=== PATIENT | female | born 1970 | race Caucasian/White ===

== ENCOUNTER 2017-07-17 09:28 | Emergency (ER) | payer MEDICARE ==
[2017-07-17] MEDS ORDERED: Compazine 10 MG/2 ML IV ONE (09:52)
[2017-07-17] MEDS ORDERED: Sodium Chloride 0.9% 1000 ML 1,000 ML IV STA (09:52)
[2017-07-17] MEDS ORDERED: BENADRYL 50 MG/ML IV ONE (09:52)
--- NOTE | 2017-07-17 10:00 | ERPHSYRPT ---
- History of Present Illness Time Seen by Provider: 07/17/17 09:49 Source: patient Exam Limitations: no limitations Patient Subjective Stated Complaint: has had cluster headaches x 2 weeks. states migraine started last night affeting right eye. nausea without vomiting. light sensitive Triage Nursing Assessment: alert and oriented. stavble gait. arrived with sunglasses. pain to right eye nausea no vomiting. lungs clear bilaterally./ deneis nasal congestion or fever. AUBREY Physician History: 46 year old female reports to the emergency department complaining of headache that has been persistent for 2 weeks. She reports a history of chronic cluster headaches, the pain is right sided in the frontal and temporal region with throbbing sensation. She has been nauseated but no vomiting. No visual changes, no gait disturbances, she has had some numbness in the right hand that started yesterday. She reports her has been ill and spent a week in the hospital so she has been sleep deprived and staying in [facility] which she attributes as a trigger for her headaches. She has tried excedin migraine and tylenol at home with no relief in her symptoms. Timing/Duration: week(s) (2) Quality: throbbing Head Pain Location: frontal, temporal Severity of Pain-Max: severe Severity of Pain-Current: severe Recent Head Trauma: chronic headaches Associated Symptoms: nausea/vomiting, No confusion, No dizziness, No fever/ chills, No numbness in legs/feet, No vision changes, No visual disturbance, No weakness Previous symptoms: different symptoms Allergies/Adverse Reactions: Penicillins Allergy (Severe, Verified 07/17/17 09:47) Swelling of Tongue and Lips pregabalin [From Lyrica] Allergy (Severe, Verified 07/17/17 09:47) Swelling of Tongue and Lips Home Medications: Duloxetine HCl 40 mg PO DAILY 07/17/17 [History] Gabapentin [Gralise] 600 mg PO DAILY 07/17/17 [History] Lorazepam 1 mg [Ativan 1 MG] 1 mg PO TID 07/17/17 [History] Lorazepam 1 mg [Ativan 1 MG] 1 mg PO TIDPRN 07/17/17 [History] Morphine Sulfate [Morphine Sulfate ER] 10 mg PO BIDPRN PRN 07/17/17 [History] Omeprazole [Prilosec] 40 mg PO DAILY 07/17/17 [History] Hx Tetanus, Diphtheria Vaccination/Date Given: Yes Hx Influenza Vaccination/Date Given: No Hx Pneumococcal Vaccination/Date Given: No Immunizations Up to Date: Yes - Review of Systems Constitutional: No Fever, No Chills Eyes: Photophobia, No Vision Changes, No Double Vision Ears, Nose, & Throat: No Symptoms Respiratory: No Cough, No Dyspnea Cardiac: No Chest Pain, No Edema, No Syncope Abdominal/Gastrointestinal: Nausea, No Abdominal Pain, No Vomiting, No Diarrhea , No Constipation, No Hematemesis, No Hematochezia, No Melena Genitourinary Symptoms: No Dysuria Musculoskeletal: No Back Pain, No Neck Pain Skin: No Rash Neurological: Headache, No Dizziness, No Focal Weakness, No Gait Changes, No Paralysis Psychological: No Symptoms All Other Systems: Reviewed and Negative - Past Medical History Pertinent Past Medical History: Yes Neurological History: Migraines Respiratory History: No Pertinent History Musculoskeletal History: Degenerative Disk Disease, Fibromyalgia, Other Psycho-Social History: Anxiety, Depression - Past Surgical History Past Surgical History: Yes Gastrointestinal: Cholecystectomy Musculoskeletal: Orthopedic Surgery Female Surgical History: Section Other Surgical History: knee scopes - Social History Smoking Status: Current every day smoker Exposure to second hand smoke: No Drug Use: none Patient Lives Alone: No - Nursing Vital Signs Nursing Vital Signs: Initial Vital Signs Temperature 97.9 F 07/17/17 09:32 Pulse Rate 69 07/17/17 09:32 Respiratory Rate 18 07/17/17 09:32 Blood Pressure 105/43 07/17/17 09:32 O2 Sat by Pulse Oximetry 99 07/17/17 09:32 Pain Scale Pain Intensity 4 - Physical Exam General Appearance: mild distress (patient lying in a dark room with sunglasses on and her face covered with a pillow, she is cooperative and conversant, answers questions appropriately) Eye Exam: PERRL/EOMI Ears, Nose, Throat Exam: normal ENT inspection, moist mucous membranes Neck Exam: normal inspection, supple, full range of motion, No meningismus Respiratory Exam: normal breath sounds, lungs clear Cardiovascular Exam: regular rate/rhythm, normal heart sounds Gastrointestinal/Abdominal Exam: soft, No tenderness, No distention Back Exam: normal inspection Extremity Exam: normal inspection Mental Status Exam: alert, 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, 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: normal hearing, normal speech, PERRL Coordination/Gait Exam: normal finger to nose Motor/Sensory Exam: no motor deficit, no sensory deficit DTR Exam: knee (R): 2+, knee (L): 2+ Skin Exam: normal color, warm, dry, No rash SpO2 Interpretation: normal SpO2: 99 Oxygen Delivery: Room Air Ordered Tests: Active Orders 24 hr Category Date Time Status IV Insertion STAT Care 07/17/17 10:12 Active Oxygen-ED Only NASAL CANNULA 2 lpm Care 07/17/17 09:52 Active HEAD WITHOUT CONTRAST [CT] Stat Exams 07/17/17 09:53 Ordered CBC W DIFF Stat Lab 07/17/17 10:06 Completed CMP Stat Lab 07/17/17 10:06 Completed Medication Summary Discontinued Medications Generic Name Dose Route Start Last Admin Trade Name Freq PRN Reason Stop Dose Admin Diphenhydramine HCl 25 mg 07/17/17 09:52 07/17/17 10:19 Benadryl 50 Mg/Ml IV 07/17/17 09:53 25 mg STAT ONE Administration Diphenhydramine HCl Confirm 07/17/17 10:15 Benadryl 50 Mg/Ml Administered 07/17/17 10:16 Dose 50 mg .ROUTE .STK-MED ONE Sodium Chloride 1,000 mls @ 999 mls/hr 07/17/17 09:52 07/17/17 10:19 Sodium Chloride 0.9% 1000 Ml IV 07/17/17 10:52 999 mls/hr .Q1H1M STA Administration Sodium Chloride Confirm 07/17/17 10:15 Sodium Chloride 0.9% 1000 Ml Administered 07/17/17 10:16 Dose 1,000 mls @ ud .ROUTE .STK-MED ONE Prochlorperazine Edisylate 10 mg 07/17/17 09:52 07/17/17 10:19 Compazine 10 Mg/2 Ml IV 07/17/17 09:53 10 mg STAT ONE Administration Prochlorperazine Edisylate Confirm 07/17/17 10:15 Compazine 10 Mg/2 Ml Administered 07/17/17 10:16 Dose 10 mg .ROUTE .STK-MED ONE Lab/Rad Data: Laboratory Result Diagrams 07/17/17 10:06 07/17/17 10:06 Laboratory Results 07/17/17 07/17/17 Range/Units 10:06 10:06 WBC 6.6 (4.0-10.5) K/mm3 RBC 4.23 (4.1-5.4) M/mm3 Hgb 11.8 L (12.0-16.0) gm/dl Hct 36.9 (35-47) % MCV 87.2 (78-100) fl MCH 27.8 (26-32) pg MCHC 32.0 (32-36) g/dl RDW 14.8 H (11.5-14.0) % Plt Count 245 (150-450) K/mm3 MPV 10.4 H (6-9.5) fl Gran % 39.6 (36.0-66.0) % Lymphocytes % 47.7 H (24.0-44.0) % Monocytes % 5.1 (0.0-12.0) % Eosinophils % 6.8 H (0.00-5.0) % Basophils % 0.8 (0.0-0.4) % Basophils # 0.05 (0-0.4) Sodium 143 (136-145) mEq/L Potassium 4.5 (3.5-5.1) mEq/L Chloride 106 (98-107) mEq/L Carbon Dioxide 29.1 (21-32) mEq/L Anion Gap 12.1 (5-15) MEQ/L BUN 16 (9-20) mg/dL Creatinine 0.90 (0.55-1.30) mg/dl Estimated GFR > 60 ML/MIN Glucose 96 (70-110) MG/DL Calcium 8.1 L (8.5-10.1) mg/dL Total Bilirubin 0.30 (0.2-1.0) mg/dL AST 20 (15-37) U/L ALT 24 (12-78) U/L Alkaline Phosphatase 80 (46-116) U/L Serum Total Protein 6.2 L (6.4-8.2) gm/dL Albumin 3.2 L (3.4-5.0) g/dL - Progress Progress: improved, re-examined Progress Note: 07/17/17 10:02 notified after orders placed by radiology that CT scanner is down, service call has been placed. will treat for migraine at this time and await lab workup. patient has no focal abnormalities on exam but CT was ordered due to right hand numbness complaint. 07/17/17 11:17 patient rechecked, now has lights on in room with glasses off. sitting up talking with her family member in the room with her. states she feels much better, still has some mild headache but feels more manageable and would like to go home. she denies any paresthesias now, neuro exam briefly rechecked and patient has no deficits. I don't feel as thought CT is necessary at this time and she agrees with this after discussion. - Departure Time of Disposition: 11:19 Departure Disposition: Home Clinical Impression: Migraine Condition: Stable Critical Care Time: No Referrals: ABBI NAVARRETE MD [Primary Care Provider] - Instructions: Migraine Prescriptions: Sumatriptan Succinate [Imitrex 50 mg] 50 mg PO DAILY PRN PRN #12 tablet PRN Reason: Headache
[2017-07-17 10:11] LABS: BASOPHIL % 0.8 % (0.0-0.4); Eosinophil % 6.8 % (0.00-5.0); Granulocytes % 39.6 % (36.0-66.0); Lymphocytes % 47.7 % (24.0-44.0); Mean Cell Volume 87.2 fl (78-100); Mean Platelet Volume 10.4 fl (6-9.5); Monocytes % 5.1 % (0.0-12.0); Platelet Count 245 K/mm3 (150-450); Red Blood Count 4.23 M/mm3 (4.1-5.4); Red Cell Distribution Width 14.8 % (11.5-14.0); White Blood Count 6.6 K/mm3 (4.0-10.5)
[2017-07-17] MEDS ORDERED: Sodium Chloride 0.9% 1000 ML 1,000 ML ONE (10:15)
[2017-07-17] MEDS ORDERED: Compazine 10 MG/2 ML ONE (10:15)
[2017-07-17] MEDS ORDERED: BENADRYL 50 MG/ML ONE (10:15)
[2017-07-17 10:38] LABS: ALBUMIN 3.2 g/dL (3.4-5.0); ALKALINE PHOSPHATASE 80 U/L (46-116); ANION GAP 12.1 MEQ/L (5-15); BLOOD UREA NITROGEN 16 mg/dL (9-20); CHLORIDE 106 mEq/L (98-107); Carbon Dioxide 29.1 mEq/L (21-32); Glucose 96 MG/DL (70-110); Potassium 4.5 mEq/L (3.5-5.1); SGOT/AST 20 U/L (15-37); SGPT/ALT 24 U/L (12-78); SODIUM 143 mEq/L (136-145); Total Protein 6.2 gm/dL (6.4-8.2)
[2017-07-17 10:45] LABS: Mean Corpuscular Hemoglobin 27.8 pg (26-32)
[2017-07-17 10:52] VITALS: BP 132/82
[2017-07-17 11:14] VITALS: PULSE 68
[2017-07-17 11:22] VITALS: O2SAT 99
== END 2017-07-17 11:41 | disposition home or self-care (01) ==
LOC: ED 09:28
DX: G43.909 Migraine, unspecified, not intractable, without status migrainosus (principal); R11.0 Nausea
CPT/HCPCS: 36000; 36415; 80053; 85025; 96360; 96374; 96375; 99284; J1200

== ENCOUNTER 2020-04-15 18:17 | Emergency (ER) | payer MEDICARE ==
[2020-04-15 19:19] LABS: Absolute Neutrophil Ct (ANC) 3.47 (1.4-6.9); BASOPHIL % 0.6 % (0.0-0.4); Basophil (Absolute #) 0.04 (0-0.4); Eosinophil % 3.9 % (0.00-5.0); Eosinophil (Absolute #) 0.26 (0-0.5); Hematocrit 38.3 % (35-47); Lymphocyte (Absolute #) 2.41 (1.0-4.6); Lymphocytes % 36.3 % (24.0-44.0); Mean Corpuscular Hemoglobin 29.5 pg (26-32); Mean Corpuscular Hgb Concent. 33.9 g/dl (32-36); Mean Platelet Volume 9.9 fl (7.5-11.0); Monocyte (Absolute #) 0.46 (0.0-1.3); Monocytes % 6.9 % (0.0-12.0); Neutrophil % 52.3 % (36.0-66.0); Platelet Count 268 K/mm3 (150-450); Red Cell Distribution Width 13.7 % (11.5-14.0); White Blood Count 6.6 K/mm3 (4.0-10.5)
[2020-04-15 19:30] LABS: ALBUMIN 3.9 g/dL (3.5-5.0); ALKALINE PHOSPHATASE 71 U/L (38-126); ANION GAP 13.1 MEQ/L (5-15); BLOOD UREA NITROGEN 29 mg/dL (7-17); CHLORIDE 103 mmol/L (98-107); Calcium 9.6 mg/dL (8.4-10.2); Carbon Dioxide 26 mmol/L (22-30); Creatinine 1 0.87 mg/dL (0.52-1.04); Glucose 100 mg/dL (74-106); Potassium 3.7 mmol/L (3.5-5.1); SGOT/AST 23 U/L (14-36); SGPT/ALT 16 U/L (0-35); SODIUM 139 mmol/L (137-145)
[2020-04-15 19:53] LABS: Amphetamine,Urine NEGATIVE (NEGATIVE); Barbiturate,Urine NEGATIVE (NEGATIVE); Benzodiazepine,Urine NEGATIVE (NEGATIVE); Cocaine,Urine NEGATIVE (NEGATIVE); Methadone,Urine NEGATIVE (NEGATIVE); Opiate,Urine NEGATIVE (NEGATIVE); PCP,Urine NEGATIVE (NEGATIVE); THC,Urine NEGATIVE (NEGATIVE)
[2020-04-15] MEDS ORDERED: BABY ASPIRIN 81 MG CHEW PO ONE (20:30)
--- NOTE | 2020-04-15 20:32 | ERPHSYRPT ---
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 Patient states the chest pain has been intermittent for the past several days. Patient states she was out in the sun today. She developed a dull ache that radiates to her back around her left chest. However patient thinks it may be her fibromyalgia. Pressing on her chest reproduces symptoms. The pain today was associated with mild nausea that lasted several minutes. Symptoms resolved. She is no longer nauseous. No active chest pain. Patient had similar symptoms last year. Patient states she had a cardiac stress test and a cardiac cath. Patient states her cath was essentially within normal limits. Patient denies history of diabetes. Patient is obese. Patient voices no other complaints at this time. Timing/Duration: day(s) (3 days.) Activities at Onset: activity Quality: aching Location: other (Breast.) Chest Pain Radiation: back (Pain radiates around left chest towards her back.) Severity of Pain-Max: moderate Severity of Pain-Current: mild Modifying Factors: Improves With: nothing Associated Symptoms: nausea, No vomiting, No palpitations, No heartburn, No shortness of breath, No cough, No hurts to breathe, No diaphoresis, No fatigue, No swelling/lump in chest, No syncope, No dizziness, No edema Prior Chest Pain/Cardiac Workup: cardiac cath, stress test, recent hospitalization Nitro Today/Relief: no nitro taken today Aspirin Treatment Today: no aspirin today Allergies/Adverse Reactions: Penicillins Allergy (Severe, Verified 04/15/20 18:41) Swelling of Tongue and Lips pregabalin [From Lyrica] Allergy (Severe, Verified 04/15/20 18:41) Swelling of Tongue and Lips isosorbide Adverse Reaction (Severe, Verified 04/15/20 18:41) Home Medications: Duloxetine HCl 60 mg PO BID 07/17/17 [History] Gabapentin [Gralise] 1,800 mg PO DAILY 07/17/17 [History] Lorazepam 1 mg [Ativan 1 MG] 1 mg PO TIDPRN 07/17/17 [History] Omeprazole [Prilosec] 40 mg PO DAILY 07/17/17 [History] Amlodipine Besylate [Norvasc] 2.5 mg PO DAILY 04/15/20 [History] Metoprolol Succinate 12.5 mg PO DAILY PRN 04/15/20 [History] Ranolazine 500 MG [Ranexa 500 MG] 500 mg PO BID 04/15/20 [History] Hx Tetanus, Diphtheria Vaccination/Date Given: Yes Hx Influenza Vaccination/Date Given: No Hx Pneumococcal Vaccination/Date Given: No Travel Risk - International Travel Have you traveled outside of the country in past 3 weeks: No Have you or anyone close to you been diagnosed with or: No Do your reside in a community with a known COVID-19 case?: Yes If Yes where:: [place] - Coronavirus Screening Has patient experienced Coronavirus symptoms: No - Review of Systems Constitutional: No Symptoms, No Fever, No Chills Eyes: No Symptoms Ears, Nose, & Throat: No Symptoms Respiratory: No Symptoms, No Cough, No Dyspnea Cardiac: No Symptoms, No Chest Pain, No Edema, No Syncope Abdominal/Gastrointestinal: No Symptoms, No Abdominal Pain, No Nausea, No Vomiting, No Diarrhea Genitourinary Symptoms: No Symptoms, No Dysuria Musculoskeletal: No Symptoms, No Back Pain, No Neck Pain Skin: No Symptoms, No Rash Neurological: No Symptoms, No Dizziness, No Focal Weakness, No Sensory Changes Psychological: No Symptoms Endocrine: No Symptoms Hematologic/Lymphatic: No Symptoms Immunological/Allergic: No Symptoms All Other Systems: Reviewed and Negative - Past Medical History Pertinent Past Medical History: Yes Neurological History: No Pertinent History, Migraines Cardiac History: Hypertension Respiratory History: No Pertinent History Endocrine Medical History: Hyperthyroidism Musculoskeletal History: Degenerative Disk Disease, Fibromyalgia Psycho-Social History: Anxiety, Depression - Past Surgical History Past Surgical History: Yes Gastrointestinal: Cholecystectomy Musculoskeletal: Orthopedic Surgery Female Surgical History: Section Other Surgical History: knee scopes - Social History Smoking Status: Current every day smoker Exposure to second hand smoke: Yes Drug Use: none Patient Lives Alone: No - Female History Hx Now: No (tubal) - Nursing Vital Signs Nursing Vital Signs: Initial Vital Signs Temperature 98.0 F 04/15/20 18:28 Pulse Rate 84 04/15/20 18:28 Respiratory Rate 15 04/15/20 18:28 Blood Pressure 124/80 04/15/20 18:28 O2 Sat by Pulse Oximetry 95 04/15/20 18:28 Pain Scale Pain Intensity 0 - Physical Exam General Appearance: no apparent distress, alert, No mild distress Eye Exam: PERRL/EOMI, eyes nml inspection Ears, Nose, Throat Exam: normal ENT inspection, TMs normal, moist mucous membranes Neck Exam: normal inspection, non-tender, supple, full range of motion Respiratory Exam: normal breath sounds, chest tenderness (Tenderness to left chest wall reproduces symptoms.), lungs clear, No respiratory distress Cardiovascular Exam: regular rate/rhythm, normal heart sounds, normal peripheral pulses, capillary refill <2 sec, No tachycardia Gastrointestinal/Abdomen Exam: soft, No tenderness, No mass Pelvic Exam: not done Rectal Exam: deferred Back Exam: normal inspection, No CVA tenderness, No vertebral tenderness Extremity Exam: normal inspection, normal range of motion Neurologic Exam: alert, 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, cooperative, normal mood/affect, sensation nml, No motor deficits Skin Exam: normal color, warm, dry Lymphatic Exam: No adenopathy SpO2 Interpretation: normal SpO2: 95 O2 Delivery: Room Air - Course Nursing assessment & vital signs reviewed: Yes EKG Interpreted by Me: RATE (94), Sinus Rhythm, NORMAL AXIS, NORMAL INTERVALS - Radiology Exams Chest X-ray Interpretation: Interpreted by me (No consolidation, no infiltrate, no pleural effusion, normal heart silhouette, normal bony thorax. No pneumothorax. ) Ordered Tests: Active Orders 24 hr Category Date Time Status Coal Digger STAT Care 04/15/20 18:52 Active EKG-ER Only STAT Care 04/15/20 18:52 Active IV Insertion STAT Care 04/15/20 18:52 Active Pulse Oximetry (ED) STAT Care 04/15/20 18:52 Active CHEST 1 VIEW (PORTABLE) Stat Exams 04/15/20 18:52 Taken CBC W DIFF Stat Lab 04/15/20 19:15 Completed CMP Stat Lab 04/15/20 19:15 Completed D-DIMER QUANTITATIVE Stat Lab 04/15/20 19:15 Completed HCG,QUALITATIVE URINE Stat Lab 04/15/20 Completed TROPONIN Q3H Lab 04/15/20 19:15 Completed TROPONIN Q3H Lab 04/15/20 22:08 Completed TROPONIN Q3H Lab 04/16/20 01:00 Ordered TROPONIN Q3H Lab 04/16/20 04:00 Ordered TROPONIN Q3H Lab 04/16/20 07:00 Ordered Urine Triage Profile Stat Lab 04/15/20 19:18 Completed Medication Summary Discontinued Medications Generic Name Dose Route Start Last Admin Trade Name Dewayneq PRN Reason Stop Dose Admin Aspirin 324 mg 04/15/20 20:30 04/15/20 20:42 Baby Aspirin 81 Mg Chew PO 04/15/20 20:31 324 mg STAT ONE Administration Aspirin Confirm 04/15/20 20:41 Baby Aspirin 81 Mg Chew Administered 04/15/20 20:42 Dose 324 mg .ROUTE .Jalousier-MED ONE Lab/Rad Data: Laboratory Result Diagrams 04/15/20 19:15 04/15/20 19:15 Laboratory Results 04/15/20 04/15/20 04/15/20 Range/Units Unknown 22:08 19:18 WBC (4.0-10.5) K/mm3 RBC (4.1-5.4) M/mm3 Hgb (12.0-16.0) gm/dl Hct (35-47) % MCV (78-100) fl MCH (26-32) pg MCHC (32-36) g/dl RDW (11.5-14.0) % Plt Count (150-450) K/mm3 MPV (7.5-11.0) fl Gran % (36.0-66.0) % Eos # (Auto) (0-0.5) Absolute Lymphs (auto) (1.0-4.6) Absolute Monos (auto) (0.0-1.3) Lymphocytes % (24.0-44.0) % Monocytes % (0.0-12.0) % Eosinophils % (0.00-5.0) % Basophils % (0.0-0.4) % Absolute Granulocytes (1.4-6.9) Basophils # (0-0.4) D-Dimer (215-500) ng/mL Sodium (137-145) mmol/L Potassium (3.5-5.1) mmol/L Chloride (98-107) mmol/L Carbon Dioxide (22-30) mmol/L Anion Gap (5-15) MEQ/L BUN (7-17) mg/dL Creatinine (0.52-1.04) mg/dL Estimated GFR ML/MIN Glucose (74-106) mg/dL Calcium (8.4-10.2) mg/dL Total Bilirubin (0.2-1.3) mg/dL AST (14-36) U/L ALT (0-35) U/L Alkaline Phosphatase (38-126) U/L Troponin I < 0.012 (0.000-0.034) ng/mL Serum Total Protein (6.3-8.2) g/dL Albumin (3.5-5.0) g/dL Urine HCG, Qual NEGATIVE (Negative) Urine Opiates Level NEGATIVE (NEGATIVE) Ur Methadone NEGATIVE (NEGATIVE) Urine Barbiturates NEGATIVE (NEGATIVE) Ur Phencyclidine (PCP) NEGATIVE (NEGATIVE) Urine Amphetamine NEGATIVE (NEGATIVE) U Benzodiazepine Level NEGATIVE (NEGATIVE) Urine Cocaine NEGATIVE (NEGATIVE) Urine Marijuana (THC) NEGATIVE (NEGATIVE) 04/15/20 04/15/20 04/15/20 Range/Units 19:15 19:15 19:15 WBC (4.0-10.5) K/mm3 RBC (4.1-5.4) M/mm3 Hgb (12.0-16.0) gm/dl Hct (35-47) % MCV (78-100) fl MCH (26-32) pg MCHC (32-36) g/dl RDW (11.5-14.0) % Plt Count (150-450) K/mm3 MPV (7.5-11.0) fl Gran % (36.0-66.0) % Eos # (Auto) (0-0.5) Absolute Lymphs (auto) (1.0-4.6) Absolute Monos (auto) (0.0-1.3) Lymphocytes % (24.0-44.0) % Monocytes % (0.0-12.0) % Eosinophils % (0.00-5.0) % Basophils % (0.0-0.4) % Absolute Granulocytes (1.4-6.9) Basophils # (0-0.4) D-Dimer 289 (215-500) ng/mL Sodium 139 (137-145) mmol/L Potassium 3.7 (3.5-5.1) mmol/L Chloride 103 (98-107) mmol/L Carbon Dioxide 26 (22-30) mmol/L Anion Gap 13.1 (5-15) MEQ/L BUN 29 H (7-17) mg/dL Creatinine 0.87 (0.52-1.04) mg/dL Estimated GFR > 60.0 ML/MIN Glucose 100 (74-106) mg/dL Calcium 9.6 (8.4-10.2) mg/dL Total Bilirubin 0.40 (0.2-1.3) mg/dL AST 23 (14-36) U/L ALT 16 (0-35) U/L Alkaline Phosphatase 71 (38-126) U/L Troponin I < 0.012 (0.000-0.034) ng/mL Serum Total Protein 7.0 (6.3-8.2) g/dL Albumin 3.9 (3.5-5.0) g/dL Urine HCG, Qual (Negative) Urine Opiates Level (NEGATIVE) Ur Methadone (NEGATIVE) Urine Barbiturates (NEGATIVE) Ur Phencyclidine (PCP) (NEGATIVE) Urine Amphetamine (NEGATIVE) U Benzodiazepine Level (NEGATIVE) Urine Cocaine (NEGATIVE) Urine Marijuana (THC) (NEGATIVE) 04/15/20 Range/Units 19:15 WBC 6.6 (4.0-10.5) K/mm3 RBC 4.40 (4.1-5.4) M/mm3 Hgb 13.0 (12.0-16.0) gm/dl Hct 38.3 (35-47) % MCV 87.0 (78-100) fl MCH 29.5 (26-32) pg MCHC 33.9 (32-36) g/dl RDW 13.7 (11.5-14.0) % Plt Count 268 (150-450) K/mm3 MPV 9.9 (7.5-11.0) fl Gran % 52.3 (36.0-66.0) % Eos # (Auto) 0.26 (0-0.5) Absolute Lymphs (auto) 2.41 (1.0-4.6) Absolute Monos (auto) 0.46 (0.0-1.3) Lymphocytes % 36.3 (24.0-44.0) % Monocytes % 6.9 (0.0-12.0) % Eosinophils % 3.9 (0.00-5.0) % Basophils % 0.6 (0.0-0.4) % Absolute Granulocytes 3.47 (1.4-6.9) Basophils # 0.04 (0-0.4) D-Dimer (215-500) ng/mL Sodium (137-145) mmol/L Potassium (3.5-5.1) mmol/L Chloride (98-107) mmol/L Carbon Dioxide (22-30) mmol/L Anion Gap (5-15) MEQ/L BUN (7-17) mg/dL Creatinine (0.52-1.04) mg/dL Estimated GFR ML/MIN Glucose (74-106) mg/dL Calcium (8.4-10.2) mg/dL Total Bilirubin (0.2-1.3) mg/dL AST (14-36) U/L ALT (0-35) U/L Alkaline Phosphatase (38-126) U/L Troponin I (0.000-0.034) ng/mL Serum Total Protein (6.3-8.2) g/dL Albumin (3.5-5.0) g/dL Urine HCG, Qual (Negative) Urine Opiates Level (NEGATIVE) Ur Methadone (NEGATIVE) Urine Barbiturates (NEGATIVE) Ur Phencyclidine (PCP) (NEGATIVE) Urine Amphetamine (NEGATIVE) U Benzodiazepine Level (NEGATIVE) Urine Cocaine (NEGATIVE) Urine Marijuana (THC) (NEGATIVE) - Progress Progress: improved Air Movement: good Progress Note: 04/15/20 22:56 Patient reassessed. She is asymptomatic. Patient had 2- troponins. Chest x- ray is within normal limits. Work-up essentially within normal limits. Vitals stable. Patient is not a diabetic. She she had a complete cardiac work-up including catheterization approximately 1 year ago. All was essentially normal per patient. Patient chest pain reproduced with palpation. No indication for admission or further work-up at this time. Patient advised to follow-up with her primary care doctor, Dr. Navarrete within 48 hours for reevaluation. Patient understands instructions and agrees with plan of care. 04/15/20 22:57 Blood Culture(s) Obtained: No Antibiotics given: No Counseled pt/family regarding: lab results, diagnosis, need for follow-up, rad results - Departure Departure Disposition: Home Clinical Impression: Chest wall pain Condition: Good Critical Care Time: No Referrals: ABBI NAVARRETE MD [Primary Care Provider] - Instructions: Chest Pain (DC) Additional Instructions: Discharge/Care Plan BRIGITTE EL was seen on 04/15/20 in the Emergency Room. The patient was counseled regarding Diagnosis,Lab results, Imaging studies, need for follow up and when to return to the Emergency Room. Prescriptions given: Discharge Note I have spoken with the patient and/or caregivers. I have explained the patient' s condition, diagnosis and treatment plan based on the information available to me at this time. I have answered the patient's and/or caregiver's questions and addressed any concerns. The patient and/or caregivers have as good understanding of the patient's diagnosis, condition and treatment plan as can be expected at this point. The vital signs have been stable. The patient's condition is stable and appropriate for discharge from the emergency department. The patient will pursue further outpatient evaluation with the primary care physician or other designated or consulting physician as outlined in the discharge instructions. The patient and/or caregivers are agreeable to this plan of care and follow-up instructions have been explained in detail. The patient and/or caregivers have received these instruction. The patient/and or caregivers are aware that any significant change in condition or worsening of symptoms should prompt an immediate return to this or the closest emergency department or call 911.
[2020-04-15] MEDS ORDERED: BABY ASPIRIN 81 MG CHEW ONE (20:41)
[2020-04-15 23:32] VITALS: BP 125/72; PULSE 83; O2SAT 96
--- NOTE | 2020-04-16 08:58 | XRAY ---
Indication: Chest pain. Comparison: May 15, 2019. Portable chest again demonstrates minimal lingula atelectasis/scarring and a few tiny calcified granulomas. Remaining heart, lungs, and bony thorax normal.
== END 2020-04-15 23:35 | disposition home or self-care (01) ==
LOC: ED 18:17
DX: R07.89 Other chest pain (principal); I10 Essential (primary) hypertension; Z79.899 Other long term (current) drug therapy; M79.7 Fibromyalgia
CPT/HCPCS: 36000; 36415; 71045; 80053; 80307; 84484; 84703; 85025; 85379; 93005; 93041; 94760; 99284; A9270-GY

== ENCOUNTER 2020-12-04 05:29 | Emergency (ER) | payer MEDICARE ==
--- NOTE | 2020-12-04 06:18 | ERPHSYRPT ---
- History of Present Illness Time Seen by Provider: 12/04/20 05:45 Source: patient Exam Limitations: no limitations Patient Subjective Stated Complaint: pt states she has had a migraine since last night. states this is her normal migraine symptoms. pain is on rt side, thro bbing in eye to top of the head and radiating down to rt side of the neck Triage Nursing Assessment: pt alert and oriented, answers questions approp. pt ambulatory with steady gait noted. respirations nonlabored. skin warm and dry. pupils equal and reactive. bilat upper and lower ext strength equaland wnl. Physician History: This is a 50-year-old white female who has a history of migraine headaches and hypertension and presents with her typical migraine headache. Onset was approximately 2 days ago then it improved and came back yesterday. She denies any head injury. She has no visual changes. Her headache is right side of her head into her right side neck posteriorly and and right eye. It is throbbing. Patient no longer sees a pain specialist and has not seen a neurologist in quite some time. She has taken Excedrin as well as drinking caffeine. She is out of her tramadol. Patient drove herself and she states she cannot get a ride home. Patient denies head trauma. Timing/Duration: yesterday Quality: throbbing Head Pain Location: frontal, temporal Severity of Pain-Max: moderate Severity of Pain-Current: moderate Recent Head Trauma: no recent headache/trauma (Patient states her pain is a 5 out of 10), occasional headaches Modifying Factors: Improves With: exposure to light, noise Associated Symptoms: denies symptoms Previous symptoms: same symptoms as today Allergies/Adverse Reactions: Penicillins Allergy (Severe, Verified 12/04/20 05:49) Swelling of Tongue and Lips pregabalin [From Lyrica] Allergy (Severe, Verified 12/04/20 05:49) Swelling of Tongue and Lips isosorbide Adverse Reaction (Severe, Verified 12/04/20 05:49) Home Medications: Duloxetine HCl 60 mg PO BID 07/17/17 [History] Gabapentin [Gralise] 1,800 mg PO HS 07/17/17 [History] Lorazepam 1 mg [Ativan 1 MG] 0.5 mg PO TIDPRN 07/17/17 [History] Omeprazole [Prilosec] 40 mg PO DAILY 07/17/17 [History] Metoprolol Succinate 12.5 mg PO DAILY 04/15/20 [History] Ranolazine 500 MG [Ranexa 500 MG] 500 mg PO BID 04/15/20 [History] Cyclobenzaprine HCl 10 mg [Cyclobenzaprine 10 MG] 10 mg PO BID PRN 12/04/20 [History] Levothyroxine Sodium [Synthroid] 200 mcg PO DAILY 12/04/20 [History] Tramadol HCl 50 mg [Ultram 50 mg] 50 mg PO DAILY PRN PRN 12/04/20 [History] Hx Tetanus, Diphtheria Vaccination/Date Given: Yes Hx Influenza Vaccination/Date Given: No Hx Pneumococcal Vaccination/Date Given: No Immunizations Up to Date: Yes Travel Risk - International Travel Have you traveled outside of the country in past 3 weeks: No - Coronavirus Screening Are you exhibiting any of the following symptoms?: No Close contact with a COVID-19 positive Pt in past 14-21 Days: No - Review of Systems Constitutional: No Symptoms Eyes: No Symptoms Ears, Nose, & Throat: No Symptoms Respiratory: No Symptoms Cardiac: No Symptoms Abdominal/Gastrointestinal: No Symptoms Genitourinary Symptoms: No Symptoms Musculoskeletal: No Symptoms Skin: No Symptoms Neurological: Headache Psychological: No Symptoms Endocrine: No Symptoms Hematologic/Lymphatic: No Symptoms Immunological/Allergic: No Symptoms All Other Systems: Reviewed and Negative - Past Medical History Pertinent Past Medical History: Yes Neurological History: No Pertinent History, Migraines Cardiac History: Hypertension Respiratory History: No Pertinent History Endocrine Medical History: Hyperthyroidism Musculoskeletal History: Degenerative Disk Disease, Fibromyalgia Psycho-Social History: Anxiety, Depression Other Medical History: ptsd - Past Surgical History Past Surgical History: Yes Gastrointestinal: Cholecystectomy Musculoskeletal: Orthopedic Surgery Female Surgical History: Section Other Surgical History: knee scopes - Social History Smoking Status: Current every day smoker How long have you smoked: 30yrs Exposure to second hand smoke: Yes Drug Use: none Patient Lives Alone: No - Female History Hx Last Menstrual Period: 11/15/20 Hx Now: No - Nursing Vital Signs Nursing Vital Signs: Initial Vital Signs Temperature 97.8 F 12/04/20 05:36 Pulse Rate 113 H 12/04/20 05:36 Respiratory Rate 16 12/04/20 05:36 Blood Pressure 157/104 12/04/20 05:36 O2 Sat by Pulse Oximetry 97 12/04/20 05:36 Pain Scale Pain Intensity 5 - Physical Exam General Appearance: no apparent distress, alert, anxiety, obese Eye Exam: PERRL/EOMI, eyes nml inspection Ears, Nose, Throat Exam: normal ENT inspection, moist mucous membranes Neck Exam: normal inspection, non-tender, supple, full range of motion Respiratory Exam: normal breath sounds, lungs clear, airway intact, No chest tenderness, No respiratory distress Cardiovascular Exam: regular rate/rhythm, normal heart sounds, normal peripheral pulses Gastrointestinal/Abdominal Exam: soft, normal bowel sounds, tenderness Back Exam: normal inspection, normal range of motion, No CVA tenderness, No vertebral tenderness Extremity Exam: normal inspection, normal range of motion, pelvis stable Mental Status Exam: alert, 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, 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 She has a 5 out of 10 migraine headache that began 2 days ago then improved and returned yesterday. She drove herself to the emergency department this morning. She states that she cannot get a ride home. I explained to her the importance of obtaining a ride in the future so we can best serve her in the emergency department when she has a acute migraine headache. We agreed on a plan of giving her a take-home tramadol and a prescription for 2 days more of tramadol. She is to continue her other migraine headache measures. Blood Culture(s) Obtained: No Antibiotics given: No Counseled pt/family regarding: diagnosis, need for follow-up - Departure Departure Disposition: Home Clinical Impression: Migraine headache Condition: Stable Critical Care Time: No Referrals: ABBI NAVARRETE MD [Primary Care Provider] - Additional Instructions: Take your tramadol prescription as prescribed. Continue Excedrin migraine headache medication [id number]. Continue your caffeine as you have been. Follow-up with your primary care physician on Sunday, December 06, 2020 to make arrangements for evaluation by neurology, or pain specialist evaluation if indicated. Return to the emergency department if symptoms worsen.
[2020-12-04] MEDS ORDERED: ULTRAM 50 MG PO ONE (06:21)
[2020-12-04] MEDS ORDERED: ULTRAM 50 MG ONE (06:26)
[2020-12-04 06:47] VITALS: BP 120/94; PULSE 78; O2SAT 95
== END 2020-12-04 06:47 | disposition home or self-care (01) ==
LOC: ED 05:29
DX: G43.909 Migraine, unspecified, not intractable, without status migrainosus (principal)
CPT/HCPCS: 99283; A9270-GY

== ENCOUNTER 2021-01-08 15:45 | Emergency (ER) | payer MEDICARE ==
--- NOTE | 2021-01-08 16:19 | ERPHSYRPT ---
- History of Present Illness Source: patient Exam Limitations: no limitations Patient Subjective Stated Complaint: L facial swelling, migraine x 7 weeks Triage Nursing Assessment: pt to ED c/o migraine, facial swelling, facial droop, intermittent blurred vision x 7 weeks. no facial swelling or drooping noted on assessment. no diff breathing or SOB reported. pt states sx have worsened today. has seen Dr. Navarrete multiple times over weeks and has tried many medications for relief of sx, nothing has yet been successful. pt A&Ox3. Physician History: 50 yo morbidly obese WF w R hemispheric BO x7wks. Pain is 9/10/sharp/throbbing w N/vomiting x1. Pain worse w bright lights/noise/movement. She has seen Dr. Navarrete for same complaint recently. Focal weakness/fever/trauma are all denied. She has a h/o MGHA. Timing/Duration: other (7 wks) Quality: sharpness, throbbing Head Pain Location: global (R hemisheric) Severity of Pain-Max: severe Severity of Pain-Current: severe Recent Head Trauma: frequent headaches, chronic headaches Modifying Factors: Improves With: exposure to light, movement, noise. Worsens With: cold therapy Associated Symptoms: nausea/vomiting, sensitive to light, No confusion, No dizziness, No fatigue, No facial pain, No fever/chills, No flushing, No light- headedness, No loss of consciousness, No nasal congestion, No nasal drainage, No neck pain, No numbness in legs/feet, No rash, No sweating, No scotoma, No seizures, No sinus infection, No speech problems, No stiff neck, No trouble walking, No vision changes, No visual disturbance, No weakness Previous symptoms: same symptoms as today Allergies/Adverse Reactions: Penicillins Allergy (Severe, Verified 01/08/21 16:08) Swelling of Tongue and Lips pregabalin [From Lyrica] Allergy (Severe, Verified 01/08/21 16:08) Swelling of Tongue and Lips isosorbide Adverse Reaction (Severe, Verified 01/08/21 16:08) Home Medications: Duloxetine HCl 60 mg PO BID 07/17/17 [History] Gabapentin [Gralise] 1,800 mg PO HS 07/17/17 [History] Omeprazole [Prilosec] 40 mg PO DAILY 07/17/17 [History] Metoprolol Succinate 25 mg PO DAILY 04/15/20 [History] Ranolazine 500 MG [Ranexa 500 MG] 500 mg PO BID 04/15/20 [History] Cyclobenzaprine HCl 10 mg [Cyclobenzaprine 10 MG] 10 mg PO BID PRN 12/04/20 [History] Levothyroxine Sodium [Synthroid] 200 mcg PO DAILY 12/04/20 [History] Hx Tetanus, Diphtheria Vaccination/Date Given: Yes Hx Influenza Vaccination/Date Given: No Hx Pneumococcal Vaccination/Date Given: No Immunizations Up to Date: Yes Travel Risk - International Travel Have you traveled outside of the country in past 3 weeks: No - Coronavirus Screening Are you exhibiting any of the following symptoms?: No Close contact with a COVID-19 positive Pt in past 14-21 Days: No - Past Medical History Pertinent Past Medical History: Yes Neurological History: Migraines ENT History: No Pertinent History Cardiac History: Hypertension Respiratory History: No Pertinent History Endocrine Medical History: Hyperthyroidism Musculoskeletal History: Degenerative Disk Disease, Fibromyalgia Psycho-Social History: Anxiety, Depression, Other Other Medical History: ptsd - Past Surgical History Past Surgical History: Yes Gastrointestinal: Cholecystectomy Musculoskeletal: Orthopedic Surgery Female Surgical History: Section, Tubal Ligation Other Surgical History: knee scopes, thyroidectomy - Social History Smoking Status: Current every day smoker How long have you smoked: 30yrs Exposure to second hand smoke: Yes Drug Use: none Patient Lives Alone: No - Female History Hx Last Menstrual Period: beginning of the month Hx Now: No (tubal) - Nursing Vital Signs Nursing Vital Signs: Initial Vital Signs Temperature 98.3 F 01/08/21 15:49 Pulse Rate 109 H 01/08/21 15:49 Respiratory Rate 18 01/08/21 15:49 Blood Pressure 137/100 01/08/21 15:49 O2 Sat by Pulse Oximetry 98 01/08/21 15:49 Pain Scale Pain Intensity 7 - Physical Exam SpO2: 98 - CT Exams Head CT Interpretation: Tele-radiologist Report (NAD) Ordered Tests: Active Orders 24 hr Category Date Time Status HEAD WITHOUT CONTRAST [CT] Stat Exams 01/08/21 16:14 Completed CBC W DIFF Stat Lab 01/08/21 16:14 Completed CMP Stat Lab 01/08/21 16:14 Completed TSH, 3RD Generation Stat Lab 01/08/21 16:14 Completed Medication Summary Discontinued Medications Generic Name Dose Route Start Last Admin Trade Name Carol PRN Reason Stop Dose Admin Ketorolac Tromethamine 60 mg 01/08/21 17:35 01/08/21 17:58 Toradol 30 Mg Injection IM 01/08/21 17:36 60 mg STAT ONE Administration Ketorolac Tromethamine Confirm 01/08/21 17:56 Toradol 30 Mg Injection Administered 01/08/21 17:57 Dose 60 mg .ROUTE .STK-MED ONE Lab/Rad Data: Laboratory Result Diagrams 01/08/21 16:14 01/08/21 16:14 Laboratory Results 01/08/21 01/08/21 01/08/21 Range/Units 16:14 16:14 16:00 WBC 8.2 (4.0-10.5) K/mm3 RBC 4.66 (4.1-5.4) M/mm3 Hgb 13.3 (12.0-16.0) gm/dl Hct 41.5 (35-47) % MCV 89.1 (78-100) fl MCH 28.5 (26-32) pg MCHC 32.0 (32-36) g/dl RDW 13.7 (11.5-14.0) % Plt Count 325 (150-450) K/mm3 MPV 9.9 (7.5-11.0) fl Gran % 53.6 (36.0-66.0) % Eos # (Auto) 0.37 (0-0.5) Absolute Lymphs (auto) 2.91 (1.0-4.6) Absolute Monos (auto) 0.49 (0.0-1.3) Lymphocytes % 35.4 (24.0-44.0) % Monocytes % 6.0 (0.0-12.0) % Eosinophils % 4.5 (0.00-5.0) % Basophils % 0.5 (0.0-0.4) % Absolute Granulocytes 4.42 (1.4-6.9) Basophils # 0.04 (0-0.4) Sodium 137 (137-145) mmol/L Potassium 4.3 (3.5-5.1) mmol/L Chloride 105 (98-107) mmol/L Carbon Dioxide 23 (22-30) mmol/L Anion Gap 12.6 (5-15) MEQ/L BUN 15 (7-17) mg/dL Creatinine 0.90 (0.52-1.04) mg/dL Estimated GFR > 60.0 ML/MIN Glucose 103 (74-106) mg/dL Calcium 9.3 (8.4-10.2) mg/dL Total Bilirubin 0.30 (0.2-1.3) mg/dL AST 23 (14-36) U/L ALT 17 (0-35) U/L Alkaline Phosphatase 79 (38-126) U/L Serum Total Protein 7.5 (6.3-8.2) g/dL Albumin 4.2 (3.5-5.0) g/dL Free T4 1.27 (0.76-1.46) ng/dL TSH 3rd Generation 0.211 L (0.47-4.68) mIU/L - Progress Progress Note: 01/08/21 17:37 60mg IM Toradol Counseled pt/family regarding: lab results, need for follow-up, rad results - Departure Departure Disposition: Home Clinical Impression: Migraine Condition: Stable Critical Care Time: No Referrals: ABBI NAVARRETE MD [Primary Care Provider] - Instructions: Headache, Adult (DC) Additional Instructions: Follow up with Dr. Navarrete on Sunday Continue with current medications
[2021-01-08 16:42] LABS: Absolute Neutrophil Ct (ANC) 4.42 (1.4-6.9); BASOPHIL % 0.5 % (0.0-0.4); Basophil (Absolute #) 0.04 (0-0.4); Eosinophil % 4.5 % (0.00-5.0); Eosinophil (Absolute #) 0.37 (0-0.5); Hematocrit 41.5 % (35-47); Hemoglobin 13.3 gm/dl (12.0-16.0); Lymphocyte (Absolute #) 2.91 (1.0-4.6); Lymphocytes % 35.4 % (24.0-44.0); Mean Cell Volume 89.1 fl (78-100); Mean Corpuscular Hemoglobin 28.5 pg (26-32); Mean Platelet Volume 9.9 fl (7.5-11.0); Monocyte (Absolute #) 0.49 (0.0-1.3); Neutrophil % 53.6 % (36.0-66.0); Platelet Count 325 K/mm3 (150-450); Red Blood Count 4.66 M/mm3 (4.1-5.4); Red Cell Distribution Width 13.7 % (11.5-14.0); White Blood Count 8.2 K/mm3 (4.0-10.5)
[2021-01-08 17:11] VITALS: PULSE 96
[2021-01-08 17:20] LABS: ALBUMIN 4.2 g/dL (3.5-5.0); ALKALINE PHOSPHATASE 79 U/L (38-126); ANION GAP 12.6 MEQ/L (5-15); BLOOD UREA NITROGEN 15 mg/dL (7-17); CHLORIDE 105 mmol/L (98-107); Calcium 9.3 mg/dL (8.4-10.2); Carbon Dioxide 23 mmol/L (22-30); EST GLOMERULAR FILTRATION RATE > 60.0 ML/MIN; Glucose 103 mg/dL (74-106); Potassium 4.3 mmol/L (3.5-5.1); SGOT/AST 23 U/L (14-36); SGPT/ALT 17 U/L (0-35); SODIUM 137 mmol/L (137-145); TSH, 3RD Generation 0.211 mIU/L (0.47-4.68); Total Protein 7.5 g/dL (6.3-8.2)
[2021-01-08] MEDS ORDERED: TORAdol 30 mg Injection IM ONE (17:35)
[2021-01-08] MEDS ORDERED: TORAdol 30 mg Injection ONE (17:56)
[2021-01-08 18:12] VITALS: BP 113/90
--- NOTE | 2021-01-08 20:08 | XRAY ---
Indication: Headache. Multiple contiguous axial images obtained through the head without contrast. Comparison: None Normal-appearing brain parenchyma, ventricles, and bony calvarium. Visualized paranasal sinuses and mastoid air cells are clear. Impression: Normal CT head without contrast exam. Comment: Preliminary interpretation was made by [facility]. No critical discrepancy.
[2021-01-08 23:11] VITALS: O2SAT 98
== END 2021-01-08 18:17 | disposition home or self-care (01) ==
LOC: ED 15:45
DX: G43.909 Migraine, unspecified, not intractable, without status migrainosus (principal); R11.2 Nausea with vomiting, unspecified; Z79.899 Other long term (current) drug therapy
CPT/HCPCS: 36415; 70450; 80053; 84439; 84443; 85025; 96372; 99284; J1885

== ENCOUNTER 2021-02-10 10:56 | Emergency (ER) | payer MEDICARE ==
[2021-02-10] MEDS ORDERED: Zofran 4 MG/2 ML VIAL IV ONE (11:04)
[2021-02-10] MEDS ORDERED: Ativan 2 MG/1 ML VIAL IV ONE (11:04)
--- NOTE | 2021-02-10 11:04 | ERPHSYRPT ---
- History of Present Illness Time Seen by Provider: 02/10/21 11:04 Source: patient, family, EMS Exam Limitations: clinical condition Physician History: This is a morbidly obese 50-year-old white female has a history of seizure disorder on Keppra and presents with an acute onset of seizure. She did not lose bowel or urine control. She has a history of hypothyroidism. Her primary care doctor is Dr. Navarrete. Patient has had a evaluation with Dr. Harris, neurologist at 330 today. Patient underwent an EEG on 01/18/2021. Her last seizure was last week per patient's son report. Patient continues to smoke a pack of cigarettes a day. Patient has a history of migraine headaches. Patient also has a history of fibromyalgia DJD and posttraumatic stress disorder. Fei grijalva was diagnosed with seizures 3 months ago. No recent head injury Timing/Duration: today, resolved prior to arrival Severity: moderate Character of Deficits: none Deficits: no difficulties Baseline/Normal Cognition: alert 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 Current Cognition: alert 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 Baseline Gait: walks w/o assistance Associated Symptoms: confusion (Mildly confused at scene but upon admission to the emergency department this improved.) Allergies/Adverse Reactions: Penicillins Allergy (Severe, Verified 01/08/21 16:08) Swelling of Tongue and Lips pregabalin [From Lyrica] Allergy (Severe, Verified 01/08/21 16:08) Swelling of Tongue and Lips isosorbide Adverse Reaction (Severe, Verified 01/08/21 16:08) Home Medications: Duloxetine HCl 60 mg PO BID 07/17/17 [History] Gabapentin [Gralise] 1,800 mg PO HS 07/17/17 [History] Omeprazole [Prilosec] 40 mg PO DAILY 07/17/17 [History] Metoprolol Succinate 25 mg PO DAILY 04/15/20 [History] Ranolazine 500 MG [Ranexa 500 MG] 500 mg PO BID 04/15/20 [History] Cyclobenzaprine HCl 10 mg [Cyclobenzaprine 10 MG] 10 mg PO BID PRN 12/04/20 [History] Levothyroxine Sodium [Synthroid] 200 mcg PO DAILY 12/04/20 [History] Hx Tetanus, Diphtheria Vaccination/Date Given: Yes Hx Influenza Vaccination/Date Given: No Hx Pneumococcal Vaccination/Date Given: No Travel Risk - International Travel Have you traveled outside of the country in past 3 weeks: No - Coronavirus Screening Are you exhibiting any of the following symptoms?: No Close contact with a COVID-19 positive Pt in past 14-21 Days: No - Vaccine Status Have you recieved a Covid-19 vaccination: No - Review of Systems Constitutional: No Symptoms Eyes: No Symptoms Ears, Nose, & Throat: No Symptoms Respiratory: No Symptoms Cardiac: No Symptoms Abdominal/Gastrointestinal: No Symptoms Genitourinary Symptoms: No Symptoms Musculoskeletal: No Symptoms Skin: No Symptoms Neurological: No Symptoms Psychological: No Symptoms Endocrine: No Symptoms Hematologic/Lymphatic: No Symptoms Immunological/Allergic: No Symptoms All Other Systems: Reviewed and Negative - Past Medical History Pertinent Past Medical History: Yes Neurological History: Migraines ENT History: No Pertinent History Cardiac History: Hypertension Respiratory History: No Pertinent History Endocrine Medical History: Hyperthyroidism Musculoskeletal History: Degenerative Disk Disease, Fibromyalgia Psycho-Social History: Anxiety, Depression, Other Other Medical History: ptsd - Past Surgical History Past Surgical History: Yes Gastrointestinal: Cholecystectomy Musculoskeletal: Orthopedic Surgery Female Surgical History: Section, Tubal Ligation Other Surgical History: knee scopes, thyroidectomy - Social History Smoking Status: Current every day smoker How long have you smoked: 30yrs Exposure to second hand smoke: Yes Drug Use: none Patient Lives Alone: No - Nursing Vital Signs Nursing Vital Signs: Initial Vital Signs Temperature 97.9 F 02/10/21 10:58 Pulse Rate 96 H 02/10/21 10:58 Respiratory Rate 15 02/10/21 10:58 Blood Pressure 131/86 02/10/21 10:58 O2 Sat by Pulse Oximetry 96 02/10/21 10:58 Pain Scale Pain Intensity 0 - Hilda Coma Scale Best Eye Response ([place]): (4) open spontaneously Best Verbal Response ([place]): (4) confused conversation Best Motor Response ([place]): (6) obeys commands [place] Total: 14 - Physical Exam General Appearance: no apparent distress, alert, anxiety, obese Eye Exam: bilateral eye: normal inspection, PERRL, EOMI Ears, Nose, Throat Exam: normal ENT inspection, moist mucous membranes Neck Exam: normal inspection, non-tender, supple, full range of motion Respiratory: normal breath sounds, lungs clear, airway intact, No chest tenderness, No respiratory distress Cardiovascular: regular rate/rhythm, normal heart sounds, normal peripheral pulses Gastrointestinal: soft, normal bowel sounds, No tenderness Pelvic Exam: not done Rectal Exam: not done Back Exam: normal inspection, normal range of motion, No CVA tenderness, No vertebral tenderness Extremity Exam: normal inspection, normal range of motion, pelvis stable 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, 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, 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 There are no changes when compared to EKG dated 04/15/2020.) Ordered Tests: Active Orders 24 hr Category Date Time Status Paraeducator STAT Care 02/10/21 11:05 Active Cath for Specimen-Straight STAT Care 02/10/21 11:06 Active EKG-ER Only STAT Care 02/10/21 11:04 Active IV Insertion STAT Care 02/10/21 11:04 Active Pulse Oximetry (ED) STAT Care 02/10/21 11:04 Active HEAD WITHOUT CONTRAST [CT] Stat Exams 02/10/21 11:05 Completed CBC W DIFF Stat Lab 02/10/21 11:00 Completed CMP Stat Lab 02/10/21 11:00 Completed T4 (Thyroxine) Stat Lab 02/10/21 11:25 Completed TSH [TSH, 3RD Generation] Stat Lab 02/10/21 11:25 Completed UA W/RFX UR CULTURE Stat Lab 02/10/21 11:19 Completed Urine Triage Profile Stat Lab 02/10/21 11:15 Completed Medication Summary Discontinued Medications Generic Name Dose Route Start Last Admin Trade Name Freq PRN Reason Stop Dose Admin Lorazepam 1 mg 02/10/21 11:04 02/10/21 11:20 Ativan 2 Mg/1 Ml Vial IV 02/10/21 11:05 1 mg STAT ONE Administration Lorazepam Confirm 02/10/21 11:08 Ativan 2 Mg/1 Ml Vial Administered 02/10/21 11:09 Dose 2 mg .ROUTE .STK-MED ONE Ondansetron HCl 4 mg 02/10/21 11:04 02/10/21 11:21 Zofran 4 Mg/2 Ml Vial IV 02/10/21 11:05 4 mg STAT ONE Administration Ondansetron HCl Confirm 02/10/21 11:20 Zofran 4 Mg/2 Ml Vial Administered 02/10/21 11:21 Dose 4 mg .ROUTE .STK-MED ONE Lab/Rad Data: Laboratory Result Diagrams 02/10/21 11:00 02/10/21 11:00 Laboratory Results 02/10/21 02/10/21 02/10/21 Range/Units 11:25 11:19 11:15 WBC (4.0-10.5) K/mm3 RBC (4.1-5.4) M/mm3 Hgb (12.0-16.0) gm/dl Hct (35-47) % MCV (78-100) fl MCH (26-32) pg MCHC (32-36) g/dl RDW (11.5-14.0) % Plt Count (150-450) K/mm3 MPV (7.5-11.0) fl Gran % (36.0-66.0) % Eos # (Auto) (0-0.5) Absolute Lymphs (auto) (1.0-4.6) Absolute Monos (auto) (0.0-1.3) Lymphocytes % (24.0-44.0) % Monocytes % (0.0-12.0) % Eosinophils % (0.00-5.0) % Basophils % (0.0-0.4) % Absolute Granulocytes (1.4-6.9) Basophils # (0-0.4) Sodium (137-145) mmol/L Potassium (3.5-5.1) mmol/L Chloride (98-107) mmol/L Carbon Dioxide (22-30) mmol/L Anion Gap (5-15) MEQ/L BUN (7-17) mg/dL Creatinine (0.52-1.04) mg/dL Estimated GFR ML/MIN Glucose (74-106) mg/dL Calcium (8.4-10.2) mg/dL Total Bilirubin (0.2-1.3) mg/dL AST (14-36) U/L ALT (0-35) U/L Alkaline Phosphatase (38-126) U/L Serum Total Protein (6.3-8.2) g/dL Albumin (3.5-5.0) g/dL Thyroxine (T4) 12.5 H (5.53-10.96) ug/dL TSH 3rd Generation < 0.015 L (0.47-4.68) mIU/L Urine Color RED (YELLOW) Urine Appearance CLOUDY (CLEAR) Urine pH 5.0 (5-6) Ur Specific [place] 1.020 (1.005-1.025) Urine Protein NEGATIVE (Negative) Urine Ketones NEGATIVE (NEGATIVE) Urine Blood NEGATIVE (0-5) Ernie/ul Urine Nitrite NEGATIVE (NEGATIVE) Urine Bilirubin NEGATIVE (NEGATIVE) Urine Urobilinogen NEGATIVE (0-1) mg/dL Ur Leukocyte Esterase NEGATIVE (NEGATIVE) Urine WBC (Auto) 0-2 (0-5) /HPF Urine RBC (Auto) 3-5 (0-2) /HPF U Epithel Cells (Auto) FEW (FEW) /HPF Urine Bacteria (Auto) FEW (NEGATIVE) /HPF Urine Mucus (Auto) SLIGHT (NEGATIVE) /HPF Urine Culture Reflexed NO (NO) Urine Glucose NEGATIVE (NEGATIVE) mg/dL Urine Opiates Level NEGATIVE (NEGATIVE) Ur Methadone NEGATIVE (NEGATIVE) Urine Barbiturates NEGATIVE (NEGATIVE) Ur Phencyclidine (PCP) NEGATIVE (NEGATIVE) Urine Amphetamine NEGATIVE (NEGATIVE) U Benzodiazepine Level NEGATIVE (NEGATIVE) Urine Cocaine NEGATIVE (NEGATIVE) Urine Marijuana (THC) NEGATIVE (NEGATIVE) 02/10/21 02/10/21 Range/Units 11:00 11:00 WBC 6.1 (4.0-10.5) K/mm3 RBC 4.51 (4.1-5.4) M/mm3 Hgb 13.0 (12.0-16.0) gm/dl Hct 40.4 (35-47) % MCV 89.6 (78-100) fl MCH 28.8 (26-32) pg MCHC 32.2 (32-36) g/dl RDW 13.4 (11.5-14.0) % Plt Count 274 (150-450) K/mm3 MPV 10.6 (7.5-11.0) fl Gran % 45.2 (36.0-66.0) % Eos # (Auto) 0.32 (0-0.5) Absolute Lymphs (auto) 2.49 (1.0-4.6) Absolute Monos (auto) 0.48 (0.0-1.3) Lymphocytes % 41.1 (24.0-44.0) % Monocytes % 7.9 (0.0-12.0) % Eosinophils % 5.3 H (0.00-5.0) % Basophils % 0.5 (0.0-0.4) % Absolute Granulocytes 2.74 (1.4-6.9) Basophils # 0.03 (0-0.4) Sodium 141 (137-145) mmol/L Potassium 4.2 (3.5-5.1) mmol/L Chloride 107 (98-107) mmol/L Carbon Dioxide 25 (22-30) mmol/L Anion Gap 13.1 (5-15) MEQ/L BUN 23 H (7-17) mg/dL Creatinine 0.91 (0.52-1.04) mg/dL Estimated GFR > 60.0 ML/MIN Glucose 116 H (74-106) mg/dL Calcium 9.0 (8.4-10.2) mg/dL Total Bilirubin 0.30 (0.2-1.3) mg/dL AST 22 (14-36) U/L ALT 17 (0-35) U/L Alkaline Phosphatase 64 (38-126) U/L Serum Total Protein 7.1 (6.3-8.2) g/dL Albumin 4.1 (3.5-5.0) g/dL Thyroxine (T4) (5.53-10.96) ug/dL TSH 3rd Generation (0.47-4.68) mIU/L Urine Color (YELLOW) Urine Appearance (CLEAR) Urine pH (5-6) Ur Specific [place] (1.005-1.025) Urine Protein (Negative) Urine Ketones (NEGATIVE) Urine Blood (0-5) Ernie/ul Urine Nitrite (NEGATIVE) Urine Bilirubin (NEGATIVE) Urine Urobilinogen (0-1) mg/dL Ur Leukocyte Esterase (NEGATIVE) Urine WBC (Auto) (0-5) /HPF Urine RBC (Auto) (0-2) /HPF U Epithel Cells (Auto) (FEW) /HPF Urine Bacteria (Auto) (NEGATIVE) /HPF Urine Mucus (Auto) (NEGATIVE) /HPF Urine Culture Reflexed (NO) Urine Glucose (NEGATIVE) mg/dL Urine Opiates Level (NEGATIVE) Ur Methadone (NEGATIVE) Urine Barbiturates (NEGATIVE) Ur Phencyclidine (PCP) (NEGATIVE) Urine Amphetamine (NEGATIVE) U Benzodiazepine Level (NEGATIVE) Urine Cocaine (NEGATIVE) Urine Marijuana (THC) (NEGATIVE) - Progress Progress: improved, re-examined Progress Note: 02/10/21 12:08 CAT scan of the head without contrast shows no acute intracranial abnormality. 02/10/21 12:21 Medical decision making: This patient's work-up is negative for any acute process. She does have an appointment scheduled with neurology at 330pm. Patient is sleepy but arousable after using Ativan 1 mg intravenously. She wakes up and answers the questions well. We will wait till she is able to sit up on her own ambulate and converse more readily. If she is able to do that prior to 300pm, we will then discharge her to be seen by the neurologist. 02/10/21 12:43 When the patient's son called the neurologist office, they told him that the patient's appointment was scheduled for 03/02/2021. We therefore contacted the neurologist office and we were able to move the patient's appointment up to 02/14/2021. Once the patient is more awake, following Ativan injection, we will discharge the patient to home. Counseled pt/family regarding: lab results, diagnosis, need for follow-up, rad results - Departure Departure Disposition: Home Clinical Impression: Seizure Condition: Stable Critical Care Time: No Referrals: ABBI NAVARRETE MD [Primary Care Provider] - Additional Instructions: Keep your neurologist appointment scheduled for you on 02/14/2021 at 11 AM. Take your medications as prescribed. Return to the emergency department if symptoms recur.
[2021-02-10] MEDS ORDERED: Ativan 2 MG/1 ML VIAL ONE (11:08)
[2021-02-10] MEDS ORDERED: Zofran 4 MG/2 ML VIAL ONE (11:20)
[2021-02-10 11:22] LABS: Absolute Neutrophil Ct (ANC) 2.74 (1.4-6.9); BASOPHIL % 0.5 % (0.0-0.4); Basophil (Absolute #) 0.03 (0-0.4); Eosinophil % 5.3 % (0.00-5.0); Eosinophil (Absolute #) 0.32 (0-0.5); Hematocrit 40.4 % (35-47); Lymphocyte (Absolute #) 2.49 (1.0-4.6); Lymphocytes % 41.1 % (24.0-44.0); Mean Cell Volume 89.6 fl (78-100); Mean Corpuscular Hemoglobin 28.8 pg (26-32); Mean Corpuscular Hgb Concent. 32.2 g/dl (32-36); Mean Platelet Volume 10.6 fl (7.5-11.0); Monocyte (Absolute #) 0.48 (0.0-1.3); Monocytes % 7.9 % (0.0-12.0); Neutrophil % 45.2 % (36.0-66.0); Platelet Count 274 K/mm3 (150-450); Red Blood Count 4.51 M/mm3 (4.1-5.4); Red Cell Distribution Width 13.4 % (11.5-14.0); White Blood Count 6.1 K/mm3 (4.0-10.5)
[2021-02-10 11:38] LABS: Appearance CLOUDY (CLEAR); Bacteria FEW /HPF (NEGATIVE); Bilirubin NEGATIVE (NEGATIVE); Blood NEGATIVE Ery/ul (0-5); Epithelial Cells FEW /HPF (FEW); Glucose NEGATIVE (NEGATIVE); Ketones NEGATIVE (NEGATIVE); Leukocyte Esterase NEGATIVE (NEGATIVE); Mucus SLIGHT /HPF (NEGATIVE); Nitrite NEGATIVE (NEGATIVE); Protein,Urine Dip NEGATIVE (Negative); Urobilinogen NEGATIVE mg/dL (0-1); WBC 0-2 /HPF (0-5)
[2021-02-10 11:50] LABS: ALBUMIN 4.1 g/dL (3.5-5.0); ALKALINE PHOSPHATASE 64 U/L (38-126); ANION GAP 13.1 MEQ/L (5-15); BLOOD UREA NITROGEN 23 mg/dL (7-17); CHLORIDE 107 mmol/L (98-107); Carbon Dioxide 25 mmol/L (22-30); Creatinine 1 0.91 mg/dL (0.52-1.04); EST GLOMERULAR FILTRATION RATE > 60.0 ML/MIN; Glucose 116 mg/dL (74-106); Potassium 4.2 mmol/L (3.5-5.1); SGOT/AST 22 U/L (14-36); SGPT/ALT 17 U/L (0-35); SODIUM 141 mmol/L (137-145); Total Protein 7.1 g/dL (6.3-8.2)
--- NOTE | 2021-02-10 11:51 | XRAY ---
Indication: Seizure. Lethargy. Multiple contiguous axial images obtained through the head without contrast. Comparison: January 08, 2021. Normal appearing brain parenchyma, ventricles, and bony calvarium. Visualized paranasal sinuses and mastoid air cells are clear. Impression: Continued normal CT head without contrast exam.
[2021-02-10 12:00] LABS: Amphetamine,Urine NEGATIVE (NEGATIVE); Barbiturate,Urine NEGATIVE (NEGATIVE); Benzodiazepine,Urine NEGATIVE (NEGATIVE); Cocaine,Urine NEGATIVE (NEGATIVE); Methadone,Urine NEGATIVE (NEGATIVE); Opiate,Urine NEGATIVE (NEGATIVE); PCP,Urine NEGATIVE (NEGATIVE); THC,Urine NEGATIVE (NEGATIVE)
[2021-02-10 12:29] LABS: T4 (Thyroxine) 12.5 ug/dL (5.53-10.96); TSH, 3RD Generation < 0.015 mIU/L (0.47-4.68)
[2021-02-10 12:36] VITALS: BP 99/67; PULSE 71; O2SAT 96
== END 2021-02-10 13:25 | disposition home or self-care (01) ==
LOC: ED 10:56
DX: G40.909 Epilepsy, unspecified, not intractable, without status epilepticus (principal); Z79.899 Other long term (current) drug therapy
CPT/HCPCS: 36000; 36415; 70450; 80053; 80307; 81001; 84436; 84443; 85025; 93005; 93041; 94760; 96374; 96375; 99284; P9612; J2060; J2405

== ENCOUNTER 2021-05-16 11:23 | Emergency (ER) | payer MEDICARE ==
[2021-05-16] MEDS ORDERED: BENADRYL 50 MG/ML IV ONE (11:43)
[2021-05-16] MEDS ORDERED: Reglan 10 MG/2 ML IV ONE (11:43)
[2021-05-16] MEDS ORDERED: TORAdol 30 mg Injection IV ONE (11:44)
--- NOTE | 2021-05-16 11:49 | ERPHSYRPT ---
- History of Present Illness Time Seen by Provider: 05/16/21 11:45 Source: patient Exam Limitations: no limitations Patient Subjective Stated Complaint: Pt states "I have migraines and I have had a migraine since sunday." Triage Nursing Assessment: Pt presented alert and 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, skin pwd Pt ambulates with an upright steady gait, able to speak in clear full sentences. pt ambulates with an upright steady gait pt in no apparent respiratory disterss. Physician History: Patient presents with a complaint of recurrent migraine headache. She says this headache has been present since Sunday making that 4 days. This headache is typical of her normal migraine headaches. She had an headache in February of this year that lasted [address] Navarrete and she was eventually referred to Dr. Keating neurologist at . She is scheduled for further testing there at the end of the month. 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 Timing/Duration: day(s) (4) Quality: aching, pressure, throbbing Head Pain Location: global Severity of Pain-Max: moderate Recent Head Trauma: chronic headaches Modifying Factors: Improves With: exposure to light, movement, noise Associated Symptoms: dizziness, light-headedness, nausea/vomiting, sensitive to light Previous symptoms: same symptoms as today Allergies/Adverse Reactions: Penicillins Allergy (Severe, Verified 01/08/21 16:08) Swelling of Tongue and Lips pregabalin [From Lyrica] Allergy (Severe, Verified 01/08/21 16:08) Swelling of Tongue and Lips isosorbide Adverse Reaction (Severe, Verified 01/08/21 16:08) Home Medications: Duloxetine HCl 60 mg PO BID 07/17/17 [History] Gabapentin [Gralise] 1,800 mg PO HS 07/17/17 [History] Omeprazole [Prilosec] 40 mg PO DAILY 07/17/17 [History] Metoprolol Succinate 25 mg PO DAILY 04/15/20 [History] Ranolazine 500 MG [Ranexa 500 MG] 500 mg PO BID 04/15/20 [History] Cyclobenzaprine HCl 10 mg [Cyclobenzaprine 10 MG] 10 mg PO BID PRN 12/04/20 [History] Levothyroxine Sodium [Synthroid] 200 mcg PO DAILY 12/04/20 [History] SUMAtriptan succinate [Imitrex 50 mg] 50 mg PO DAILY PRN 05/16/21 [History] Hx Tetanus, Diphtheria Vaccination/Date Given: Yes Hx Influenza Vaccination/Date Given: No Hx Pneumococcal Vaccination/Date Given: No Immunizations Up to Date: Yes Travel Risk - International Travel Have you traveled outside of the country in past 3 weeks: No - Coronavirus Screening Are you exhibiting any of the following symptoms?: No Close contact with a COVID-19 positive Pt in past 14-21 Days: No - Vaccine Status Have you recieved a Covid-19 vaccination: No - Review of Systems Constitutional: No Fever, No Chills Eyes: Photophobia Ears, Nose, & Throat: Other (Sonophobia) Respiratory: No Cough, No Dyspnea Cardiac: No Chest Pain, No Edema, No Syncope Abdominal/Gastrointestinal: Nausea, Vomiting, No Abdominal Pain, No Diarrhea Genitourinary Symptoms: No Dysuria Musculoskeletal: No Back Pain, No Neck Pain Skin: No Rash Neurological: No Dizziness, No Focal Weakness, No Sensory Changes Psychological: No Symptoms Endocrine: No Symptoms All Other Systems: Reviewed and Negative - Past Medical History Pertinent Past Medical History: Yes Neurological History: Migraines ENT History: No Pertinent History Cardiac History: Hypertension Respiratory History: No Pertinent History Endocrine Medical History: Hyperthyroidism Musculoskeletal History: Degenerative Disk Disease, Fibromyalgia Psycho-Social History: Anxiety, Depression, Other Other Medical History: ptsd - Past Surgical History Past Surgical History: Yes Gastrointestinal: Cholecystectomy Musculoskeletal: Orthopedic Surgery Female Surgical History: Section, Tubal Ligation Other Surgical History: knee scopes, thyroidectomy - Social History Smoking Status: Current every day smoker How long have you smoked: 0.2 Exposure to second hand smoke: Yes Drug Use: none Patient Lives Alone: No - Female History Hx Last Menstrual Period: 05/08/2021 Hx Now: No - Nursing Vital Signs Nursing Vital Signs: Initial Vital Signs Temperature 97.8 F 05/16/21 11:34 Pulse Rate 102 H 05/16/21 11:34 Respiratory Rate 22 05/16/21 11:34 Blood Pressure 132/95 05/16/21 11:34 O2 Sat by Pulse Oximetry 95 05/16/21 11:34 Pain Scale Pain Intensity 5 - Physical Exam General Appearance: moderate distress Eye Exam: PERRL/EOMI Ears, Nose, Throat Exam: normal ENT inspection, moist mucous membranes Neck Exam: normal inspection, supple, full range of motion, No meningismus Respiratory Exam: normal breath sounds, lungs clear Cardiovascular Exam: regular rate/rhythm, normal heart sounds Gastrointestinal/Abdominal Exam: soft, No tenderness, No distention Back Exam: normal inspection, normal range of motion Mental Status Exam: alert, 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, 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 Exam: normal speech, PERRL, No facial droop Coordination/Gait Exam: normal cerebellar function Motor/Sensory Exam: no motor deficit, no sensory deficit Skin Exam: normal color, warm, dry, No rash SpO2: 95 Ordered Tests: Medication Summary Discontinued Medications Generic Name Dose Route Start Last Admin Trade Name Dewayneq PRN Reason Stop Dose Admin Diphenhydramine HCl 25 mg 05/16/21 11:43 05/16/21 12:15 Benadryl 50 Mg/Ml IV 05/16/21 11:44 25 mg STAT ONE Administration Diphenhydramine HCl Confirm 05/16/21 12:12 Benadryl 50 Mg/Ml Administered 05/16/21 12:13 Dose 50 mg .ROUTE .STK-MED ONE Ketorolac Tromethamine 30 mg 05/16/21 11:44 05/16/21 12:14 Toradol 30 Mg Injection IV 05/16/21 11:45 30 mg STAT ONE Administration Ketorolac Tromethamine Confirm 05/16/21 12:12 Toradol 30 Mg Injection Administered 05/16/21 12:13 Dose 30 mg .ROUTE .STK-MED ONE Metoclopramide HCl 10 mg 05/16/21 11:43 05/16/21 12:14 Reglan 10 Mg/2 Ml IV 05/16/21 11:44 10 mg STAT ONE Administration Metoclopramide HCl Confirm 05/16/21 12:12 Reglan 10 Mg/2 Ml Administered 05/16/21 12:13 Dose 10 mg .ROUTE .STK-MED ONE - Progress Progress: improved Air Movement: good Blood Culture(s) Obtained: No Antibiotics given: No - Departure Departure Disposition: Home Clinical Impression: Migraine Condition: Stable Critical Care Time: No Referrals: ABBI NAVARRETE MD [Primary Care Provider] - Instructions: Headache, Adult (DC)
[2021-05-16] MEDS ORDERED: BENADRYL 50 MG/ML ONE (12:12)
[2021-05-16] MEDS ORDERED: TORAdol 30 mg Injection ONE (12:12)
[2021-05-16] MEDS ORDERED: Reglan 10 MG/2 ML ONE (12:12)
[2021-05-16 13:23] VITALS: BP 101/66; PULSE 75; O2SAT 97
== END 2021-05-16 13:24 | disposition home or self-care (01) ==
LOC: ED 11:23
DX: G43.909 Migraine, unspecified, not intractable, without status migrainosus (principal)
CPT/HCPCS: 36000; 96374; 96375; 99284; J1200; J1885

== ENCOUNTER 2021-06-01 08:48 | Emergency (ER) | payer MEDICARE ==
[2021-06-01] MEDS ORDERED: Sodium Chloride 0.9% 1000 ML 1,000 ML IV SCH (09:00)
--- NOTE | 2021-06-01 09:07 | XRAY ---
Indication: Confusion and left arm weakness. Stroke. History of seizures. Multiple contiguous axial images obtained through the head without contrast. Comparison: February 10, 2021. Normal appearing brain parenchyma, ventricles, and bony calvarium. Visualized paranasal sinuses and mastoid air cells are clear. Impression: Continued normal CT head without contrast exam.
[2021-06-01] MEDS ORDERED: Sodium Chloride 0.9% 1000 ML 1,000 ML ONE (09:13)
--- NOTE | 2021-06-01 09:18 | ERPHSYRPT ---
- History of Present Illness Time Seen by Provider: 06/01/21 08:55 Source: patient Exam Limitations: no limitations Patient Subjective Stated Complaint: C/O increased confusion and being drowsy. Son present and giving most of the information. Patient states, "I'm just slee py." Son states patient has seizures. Son states symptoms started last night. Son does not live with patient. Triage Nursing Assessment: Patient drowsy put awakes to verbal cues. Alert to name, is tearful, states she is aware she is in the hospital but unaware what hospital. States "Trump" as president. Pupils equal and reactive to light. Able to hold arms and legs up for 5 seconds without dropping or lowering. Physician History: Patient is a 50-year-old female presents to our ED for evaluation of confusion and feeling sleepy. Symptoms started last night. Patient believes that she had a seizure at home. Patient has a history of seizures. Patient is off of her normal seizure medication as per her neurologist. Patient states her neurolo gist stopped her seizure medications because patient complained that the seizure medication was making her sick. Patient's neurologist then ordered an EEG. There is no EEG report available at this time. Patient states she has since gotten a new neurologist. However this neurologist is in [place] and patient has not had a chance to do a [id number] consultation/evaluation. The evaluation that was done was over a television monitor. Patient states she is scheduled to have an EEG in June.. Patient lives with her son. Patient's son states that patient's face appeared droopy last night. They did not seek medical attention at that time because they felt it was a seizure. Patient states she feels drowsy. Patient called her primary care doctor this morning who advised her to come to our ED for an evaluation. No chest pain or shortness of breath. No nausea vomiting or diaphoresis. Patient appears lucid during my evaluation. Patient answering questions appropriately. Patient voices no other complaints or concerns at this time. Patient's neurologist is Dr. Keating contact number is [phone]. Timing/Duration: yesterday Severity: moderate Modifying Factors: Improves With: nothing Associated Symptoms: seizure, No nausea, No vomiting, No shortness of breath, No heartburn, No diaphoresis, No cough, No chills, No chest pain, No weakness Allergies/Adverse Reactions: Penicillins Allergy (Severe, Verified 06/01/21 09:11) Swelling of Tongue and Lips pregabalin [From Lyrica] Allergy (Severe, Verified 06/01/21 09:11) Swelling of Tongue and Lips isosorbide Adverse Reaction (Severe, Verified 06/01/21 09:11) Home Medications: Duloxetine HCl 120 mg PO DAILY 07/17/17 [History] Metoprolol Succinate 50 mg PO DAILY 04/15/20 [History] Ranolazine 500 MG [Ranexa 500 MG] 500 mg PO BID 04/15/20 [History] Levothyroxine Sodium [Synthroid] 175 mcg PO DAILY 12/04/20 [History] SUMAtriptan succinate [Imitrex 50 mg] 100 mg PO DAILY PRN 05/16/21 [History] Cholecalciferol (Vitamin D3) [Vitamin D3] 50 mcg PO DAILY 06/01/21 [History] Gabapentin [Gralise] 1,800 mg PO HS 06/01/21 [History] Lorazepam 0.5 mg [Ativan 0.5 MG] 0.5 mg PO DAILY 06/01/21 [History] Hx Tetanus, Diphtheria Vaccination/Date Given: Yes Hx Influenza Vaccination/Date Given: No Hx Pneumococcal Vaccination/Date Given: No Travel Risk - International Travel Have you traveled outside of the country in past 3 weeks: No - Coronavirus Screening Are you exhibiting any of the following symptoms?: Yes Symptoms: Headaches/Body Aches/Fatigue Close contact with a COVID-19 positive Pt in past 14-21 Days: No - Vaccine Status Have you recieved a Covid-19 vaccination: No - Review of Systems Constitutional: No Symptoms, No Fever, No Chills Eyes: No Symptoms Ears, Nose, & Throat: No Symptoms Respiratory: No Symptoms, No Cough, No Dyspnea Cardiac: No Symptoms, No Chest Pain, No Edema, No Syncope Abdominal/Gastrointestinal: No Symptoms, No Abdominal Pain, No Nausea, No Vomiting, No Diarrhea Genitourinary Symptoms: No Symptoms, No Dysuria Musculoskeletal: No Symptoms, No Back Pain, No Neck Pain Skin: No Symptoms, No Rash Neurological: No Symptoms, No Dizziness, No Focal Weakness, No Sensory Changes Psychological: No Symptoms Endocrine: No Symptoms Hematologic/Lymphatic: No Symptoms Immunological/Allergic: No Symptoms All Other Systems: Reviewed and Negative - Past Medical History Pertinent Past Medical History: Yes Neurological History: Migraines, Seizures ENT History: No Pertinent History Cardiac History: Hypertension Respiratory History: No Pertinent History Endocrine Medical History: Hyperthyroidism Musculoskeletal History: Degenerative Disk Disease, Fibromyalgia Psycho-Social History: Anxiety, Depression, Other Other Medical History: ptsd - Past Surgical History Past Surgical History: Yes Gastrointestinal: Cholecystectomy Musculoskeletal: Orthopedic Surgery Female Surgical History: Section, Tubal Ligation Other Surgical History: knee scopes, thyroidectomy - Social History Smoking Status: Current every day smoker How long have you smoked: 0.2 Exposure to second hand smoke: Yes Drug Use: none Patient Lives Alone: No - Female History Hx Now: No - Nursing Vital Signs Nursing Vital Signs: Initial Vital Signs Temperature 97.7 F 06/01/21 08:49 Pulse Rate 75 06/01/21 08:49 Respiratory Rate 17 06/01/21 08:49 Blood Pressure 118/71 06/01/21 08:49 O2 Sat by Pulse Oximetry 99 06/01/21 08:49 Pain Scale Pain Intensity 0 - Physical Exam General Appearance: no apparent distress, alert Eye Exam: PERRL/EOMI, eyes nml inspection Ears, Nose, Throat Exam: normal ENT inspection, TMs normal, pharynx normal, moist mucous membranes Neck Exam: normal inspection, non-tender, supple, full range of motion Respiratory Exam: normal breath sounds, lungs clear, No respiratory distress Cardiovascular Exam: regular rate/rhythm, normal heart sounds, normal peripheral pulses Gastrointestinal/Abdomen Exam: soft, normal bowel sounds, No tenderness, No mass Back Exam: normal inspection, normal range of motion, No CVA tenderness, No vertebral tenderness Extremity Exam: normal inspection, normal range of motion, pelvis stable Neurologic Exam: alert, 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, cooperative, normal mood/affect, sensation nml, No motor deficits Skin Exam: normal color, warm, dry, No rash Lymphatic Exam: No adenopathy SpO2 Interpretation: normal SpO2: 99 O2 Delivery: Room Air - Course Nursing assessment & vital signs reviewed: Yes EKG Interpreted by Me: RATE (68), Sinus Rhythm, NORMAL AXIS, NORMAL INTERVALS - Radiology Exams Chest X-ray Interpretation: Teleradiologist Report (Portable chest demonstrates new subtle lingula infiltrate versus atelectasis. Remaining heart and lungs unremarkable again with a few incidental tiny calcified granulomas. Bony thorax intact.) - CT Exams Head CT Interpretation: Tele-radiologist Report (Continue normal CT head without contrast exam. Normal appearing brain parenchyma ventricles and bony calvarium. Visualized paranasal sinuses and mastoid air cells are clear.) Ordered Tests: Active Orders 24 hr Category Date Time Status AMA [Release AMA] OM.NOW Care 06/01/21 13:20 Ordered Face Worker STAT Care 06/01/21 08:59 Active EKG-ER Only STAT Care 06/01/21 08:58 Active IV Insertion STAT Care 06/01/21 08:58 Active Pulse Oximetry (ED) STAT Care 06/01/21 08:58 Active CHEST 1 VIEW (PORTABLE) Stat Exams 06/01/21 09:18 Completed HEAD WITHOUT CONTRAST [CT] Stat Exams 06/01/21 08:52 Completed CBC W DIFF Stat Lab 06/01/21 09:05 Completed CMP Stat Lab 06/01/21 09:05 Completed Lactic Acid Stat Lab 06/01/21 08:58 Completed POCT GLUCOSE Stat Lab 06/01/21 08:51 Completed TROPONIN Q3H Lab 06/01/21 09:05 Completed TROPONIN Q3H Lab 06/01/21 12:15 Completed TROPONIN Q3H Lab 06/01/21 15:00 Ordered TROPONIN Q3H Lab 06/01/21 18:00 Ordered TROPONIN Q3H Lab 06/01/21 21:00 Ordered TSH [TSH, 3RD Generation] Stat Lab 06/01/21 09:05 Completed UA W/RFX UR CULTURE Stat Lab 06/01/21 10:14 Completed Urine Triage Profile Stat Lab 06/01/21 10:14 Completed Medication Summary Generic Name Dose Route Start Last Admin Trade Name Carol PRN Reason Stop Dose Admin Sodium Chloride 1,000 mls @ 100 mls/hr 06/01/21 09:00 06/01/21 09:57 Sodium Chloride 0.9% 1000 Ml IV 07/01/21 08:59 100 mls/hr .Q10H KIMMY Administration Lab/Rad Data: Laboratory Result Diagrams 06/01/21 09:05 06/01/21 09:05 Laboratory Results 06/01/21 06/01/21 06/01/21 Range/Units 12:15 10:14 10:14 WBC (4.0-10.5) K/mm3 RBC (4.1-5.4) M/mm3 Hgb (12.0-16.0) gm/dl Hct (35-47) % MCV (78-100) fl MCH (26-32) pg MCHC (32-36) g/dl RDW (11.5-14.0) % Plt Count (150-450) K/mm3 MPV (7.5-11.0) fl Gran % (36.0-66.0) % Eos # (Auto) (0-0.5) Absolute Lymphs (auto) (1.0-4.6) Absolute Monos (auto) (0.0-1.3) Lymphocytes % (24.0-44.0) % Monocytes % (0.0-12.0) % Eosinophils % (0.00-5.0) % Basophils % (0.0-0.4) % Absolute Granulocytes (1.4-6.9) Basophils # (0-0.4) Sodium (137-145) mmol/L Potassium (3.5-5.1) mmol/L Chloride (98-107) mmol/L Carbon Dioxide (22-30) mmol/L Anion Gap (5-15) MEQ/L BUN (7-17) mg/dL Creatinine (0.52-1.04) mg/dL Estimated GFR ML/MIN Glucose (74-106) mg/dL POC Glucometer (74 to 106) mg/dL Lactic Acid (0.4-2.0) Calcium (8.4-10.2) mg/dL Total Bilirubin (0.2-1.3) mg/dL AST (14-36) U/L ALT (0-35) U/L Alkaline Phosphatase (38-126) U/L Ammonia (9-30) umol/L Troponin I < 0.012 (0.000-0.034) ng/mL Serum Total Protein (6.3-8.2) g/dL Albumin (3.5-5.0) g/dL TSH 3rd Generation (0.47-4.68) mIU/L Urine Color STRAW (YELLOW) Urine Appearance CLEAR (CLEAR) Urine pH 6.0 (5-6) Ur Specific [place] 1.005 (1.005-1.025) Urine Protein NEGATIVE (Negative) Urine Ketones NEGATIVE (NEGATIVE) Urine Blood NEGATIVE (0-5) Ernie/ul Urine Nitrite NEGATIVE (NEGATIVE) Urine Bilirubin NEGATIVE (NEGATIVE) Urine Urobilinogen NEGATIVE (0-1) mg/dL Ur Leukocyte Esterase NEGATIVE (NEGATIVE) Urine WBC (Auto) NONE (0-5) /HPF Urine RBC (Auto) NONE (0-2) /HPF U Epithel Cells (Auto) NONE (FEW) /HPF Urine Bacteria (Auto) RARE (NEGATIVE) /HPF Urine Culture Reflexed NO (NO) Urine Glucose NEGATIVE (NEGATIVE) mg/dL Urine Opiates Level NEGATIVE (NEGATIVE) Ur Methadone NEGATIVE (NEGATIVE) Urine Barbiturates NEGATIVE (NEGATIVE) Ur Phencyclidine (PCP) NEGATIVE (NEGATIVE) Urine Amphetamine NEGATIVE (NEGATIVE) U Benzodiazepine Level NEGATIVE (NEGATIVE) Urine Cocaine NEGATIVE (NEGATIVE) Urine Marijuana (THC) NEGATIVE (NEGATIVE) 06/01/21 06/01/21 06/01/21 Range/Units 09:35 09:05 09:05 WBC (4.0-10.5) K/mm3 RBC (4.1-5.4) M/mm3 Hgb (12.0-16.0) gm/dl Hct (35-47) % MCV (78-100) fl MCH (26-32) pg MCHC (32-36) g/dl RDW (11.5-14.0) % Plt Count (150-450) K/mm3 MPV (7.5-11.0) fl Gran % (36.0-66.0) % Eos # (Auto) (0-0.5) Absolute Lymphs (auto) (1.0-4.6) Absolute Monos (auto) (0.0-1.3) Lymphocytes % (24.0-44.0) % Monocytes % (0.0-12.0) % Eosinophils % (0.00-5.0) % Basophils % (0.0-0.4) % Absolute Granulocytes (1.4-6.9) Basophils # (0-0.4) Sodium (137-145) mmol/L Potassium (3.5-5.1) mmol/L Chloride (98-107) mmol/L Carbon Dioxide (22-30) mmol/L Anion Gap (5-15) MEQ/L BUN (7-17) mg/dL Creatinine (0.52-1.04) mg/dL Estimated GFR ML/MIN Glucose (74-106) mg/dL POC Glucometer (74 to 106) mg/dL Lactic Acid (0.4-2.0) Calcium (8.4-10.2) mg/dL Total Bilirubin (0.2-1.3) mg/dL AST (14-36) U/L ALT (0-35) U/L Alkaline Phosphatase (38-126) U/L Ammonia < 9 L (9-30) umol/L Troponin I < 0.012 (0.000-0.034) ng/mL Serum Total Protein (6.3-8.2) g/dL Albumin (3.5-5.0) g/dL TSH 3rd Generation 0.207 L (0.47-4.68) mIU/L Urine Color (YELLOW) Urine Appearance (CLEAR) Urine pH (5-6) Ur Specific [place] (1.005-1.025) Urine Protein (Negative) Urine Ketones (NEGATIVE) Urine Blood (0-5) Enrie/ul Urine Nitrite (NEGATIVE) Urine Bilirubin (NEGATIVE) Urine Urobilinogen (0-1) mg/dL Ur Leukocyte Esterase (NEGATIVE) Urine WBC (Auto) (0-5) /HPF Urine RBC (Auto) (0-2) /HPF U Epithel Cells (Auto) (FEW) /HPF Urine Bacteria (Auto) (NEGATIVE) /HPF Urine Culture Reflexed (NO) Urine Glucose (NEGATIVE) mg/dL Urine Opiates Level (NEGATIVE) Ur Methadone (NEGATIVE) Urine Barbiturates (NEGATIVE) Ur Phencyclidine (PCP) (NEGATIVE) Urine Amphetamine (NEGATIVE) U Benzodiazepine Level (NEGATIVE) Urine Cocaine (NEGATIVE) Urine Marijuana (THC) (NEGATIVE) 06/01/21 06/01/21 06/01/21 Range/Units 09:05 09:05 08:58 WBC 5.9 (4.0-10.5) K/mm3 RBC 4.64 (4.1-5.4) M/mm3 Hgb 13.3 (12.0-16.0) gm/dl Hct 41.1 (35-47) % MCV 88.6 (78-100) fl MCH 28.7 (26-32) pg MCHC 32.4 (32-36) g/dl RDW 14.4 H (11.5-14.0) % Plt Count 266 (150-450) K/mm3 MPV 10.4 (7.5-11.0) fl Gran % 48.1 (36.0-66.0) % Eos # (Auto) 0.34 (0-0.5) Absolute Lymphs (auto) 2.31 (1.0-4.6) Absolute Monos (auto) 0.41 (0.0-1.3) Lymphocytes % 39.0 (24.0-44.0) % Monocytes % 6.9 (0.0-12.0) % Eosinophils % 5.7 H (0.00-5.0) % Basophils % 0.3 (0.0-0.4) % Absolute Granulocytes 2.84 (1.4-6.9) Basophils # 0.02 (0-0.4) Sodium 137 (137-145) mmol/L Potassium 4.0 (3.5-5.1) mmol/L Chloride 104 (98-107) mmol/L Carbon Dioxide 22 (22-30) mmol/L Anion Gap 15.2 H (5-15) MEQ/L BUN 14 (7-17) mg/dL Creatinine 0.79 (0.52-1.04) mg/dL Estimated GFR > 60.0 ML/MIN Glucose 118 H (74-106) mg/dL POC Glucometer (74 to 106) mg/dL Lactic Acid 1.7 (0.4-2.0) Calcium 8.5 (8.4-10.2) mg/dL Total Bilirubin 0.70 (0.2-1.3) mg/dL AST 26 (14-36) U/L ALT 16 (0-35) U/L Alkaline Phosphatase 65 (38-126) U/L Ammonia (9-30) umol/L Troponin I (0.000-0.034) ng/mL Serum Total Protein 6.8 (6.3-8.2) g/dL Albumin 4.0 (3.5-5.0) g/dL TSH 3rd Generation (0.47-4.68) mIU/L Urine Color (YELLOW) Urine Appearance (CLEAR) Urine pH (5-6) Ur Specific [place] (1.005-1.025) Urine Protein (Negative) Urine Ketones (NEGATIVE) Urine Blood (0-5) Ernie/ul Urine Nitrite (NEGATIVE) Urine Bilirubin (NEGATIVE) Urine Urobilinogen (0-1) mg/dL Ur Leukocyte Esterase (NEGATIVE) Urine WBC (Auto) (0-5) /HPF Urine RBC (Auto) (0-2) /HPF U Epithel Cells (Auto) (FEW) /HPF Urine Bacteria (Auto) (NEGATIVE) /HPF Urine Culture Reflexed (NO) Urine Glucose (NEGATIVE) mg/dL Urine Opiates Level (NEGATIVE) Ur Methadone (NEGATIVE) Urine Barbiturates (NEGATIVE) Ur Phencyclidine (PCP) (NEGATIVE) Urine Amphetamine (NEGATIVE) U Benzodiazepine Level (NEGATIVE) Urine Cocaine (NEGATIVE) Urine Marijuana (THC) (NEGATIVE) 06/01/21 Range/Units 08:51 WBC (4.0-10.5) K/mm3 RBC (4.1-5.4) M/mm3 Hgb (12.0-16.0) gm/dl Hct (35-47) % MCV (78-100) fl MCH (26-32) pg MCHC (32-36) g/dl RDW (11.5-14.0) % Plt Count (150-450) K/mm3 MPV (7.5-11.0) fl Gran % (36.0-66.0) % Eos # (Auto) (0-0.5) Absolute Lymphs (auto) (1.0-4.6) Absolute Monos (auto) (0.0-1.3) Lymphocytes % (24.0-44.0) % Monocytes % (0.0-12.0) % Eosinophils % (0.00-5.0) % Basophils % (0.0-0.4) % Absolute Granulocytes (1.4-6.9) Basophils # (0-0.4) Sodium (137-145) mmol/L Potassium (3.5-5.1) mmol/L Chloride (98-107) mmol/L Carbon Dioxide (22-30) mmol/L Anion Gap (5-15) MEQ/L BUN (7-17) mg/dL Creatinine (0.52-1.04) mg/dL Estimated GFR ML/MIN Glucose (74-106) mg/dL POC Glucometer 115 H (74 to 106) mg/dL Lactic Acid (0.4-2.0) Calcium (8.4-10.2) mg/dL Total Bilirubin (0.2-1.3) mg/dL AST (14-36) U/L ALT (0-35) U/L Alkaline Phosphatase (38-126) U/L Ammonia (9-30) umol/L Troponin I (0.000-0.034) ng/mL Serum Total Protein (6.3-8.2) g/dL Albumin (3.5-5.0) g/dL TSH 3rd Generation (0.47-4.68) mIU/L Urine Color (YELLOW) Urine Appearance (CLEAR) Urine pH (5-6) Ur Specific [place] (1.005-1.025) Urine Protein (Negative) Urine Ketones (NEGATIVE) Urine Blood (0-5) Ernie/ul Urine Nitrite (NEGATIVE) Urine Bilirubin (NEGATIVE) Urine Urobilinogen (0-1) mg/dL Ur Leukocyte Esterase (NEGATIVE) Urine WBC (Auto) (0-5) /HPF Urine RBC (Auto) (0-2) /HPF U Epithel Cells (Auto) (FEW) /HPF Urine Bacteria (Auto) (NEGATIVE) /HPF Urine Culture Reflexed (NO) Urine Glucose (NEGATIVE) mg/dL Urine Opiates Level (NEGATIVE) Ur Methadone (NEGATIVE) Urine Barbiturates (NEGATIVE) Ur Phencyclidine (PCP) (NEGATIVE) Urine Amphetamine (NEGATIVE) U Benzodiazepine Level (NEGATIVE) Urine Cocaine (NEGATIVE) Urine Marijuana (THC) (NEGATIVE) - Progress Progress: improved Progress Note: Tempted to admit to our hospital however Dr. Becerra feels patient needs a formal neurology consult and likely a 48-hour EEG which cannot be provided here. Case discussed with Dr. Sanders at [facility] who states that they have no beds available for the next several days. We will attempt [facility] next. [facility] has no beds available. We will try [facility] next. 06/01/21 12:44 06/01/21 12:46 Patient is of sound mind. Patient is appropriate to make informed and independent medical decisions. Patient understands that leaving AGAINST MEDICAL ADVICE can result in delayed diagnosis, increased risk of morbidity, mortality, short and long-term disability including . In spite of these risks, patient has decided to leave AGAINST MEDICAL ADVICE. Patient understands that she may return to our ED at any point if she reconsiders. Patient agrees to follow-up with her primary care doctor within 48 hours for reevaluation. Patient voices no other complaints or concerns at this time. We will release patient AGAINST MEDICAL ADVICE per their request. States she is leaving AMA because she does not want to see any other doctor other than Dr. Keating. 06/01/21 13:20 Portions of this note were created with voice recognition technology. There may be grammatical, spelling, punctuation or sound alike errors 06/01/21 13:24 Counseled pt/family regarding: lab results, diagnosis, rad results - Departure Departure Disposition: AMA Clinical Impression: Low TSH level, Seizure, Altered mental status Condition: Stable Critical Care Time: No Referrals: ABBI BECERRA MD [Primary Care Provider] - Additional Instructions: Discharge/Care Plan BRIGITTE EL was seen on 06/01/21 in the Emergency Room. The patient was counseled regarding Diagnosis,Lab results, Imaging studies, need for follow up and when to return to the Emergency Room. Prescriptions given: Discharge Note I have spoken with the patient and/or caregivers. I have explained the patient's condition, diagnosis and treatment plan based on the information available to me at this time. I have answered the patient's and/or caregiver's questions and addressed any concerns. The patient and/or caregivers have as good understanding of the patient's diagnosis, condition and treatment plan as can be expected at this point. The vital signs have been stable. The patient's condition is stable and appropriate for discharge from the emergency department. The patient will pursue further outpatient evaluation with the primary care physician or other designated or consulting physician as outlined in the discharge instructions. The patient and/or caregivers are agreeable to this plan of care and follow-up instructions have been explained in detail. The patient and/or caregivers have received these instruction. The patient/and or caregivers are aware that any significant change in condition or worsening of symptoms should prompt an immediate return to this or the closest emergency department or call 911.
[2021-06-01 09:22] LABS: Absolute Neutrophil Ct (ANC) 2.84 (1.4-6.9); BASOPHIL % 0.3 % (0.0-0.4); Basophil (Absolute #) 0.02 (0-0.4); Eosinophil % 5.7 % (0.00-5.0); Eosinophil (Absolute #) 0.34 (0-0.5); Hematocrit 41.1 % (35-47); Hemoglobin 13.3 gm/dl (12.0-16.0); Lymphocyte (Absolute #) 2.31 (1.0-4.6); Mean Cell Volume 88.6 fl (78-100); Mean Corpuscular Hemoglobin 28.7 pg (26-32); Mean Corpuscular Hgb Concent. 32.4 g/dl (32-36); Mean Platelet Volume 10.4 fl (7.5-11.0); Monocyte (Absolute #) 0.41 (0.0-1.3); Monocytes % 6.9 % (0.0-12.0); Neutrophil % 48.1 % (36.0-66.0); Platelet Count 266 K/mm3 (150-450); Red Blood Count 4.64 M/mm3 (4.1-5.4); Red Cell Distribution Width 14.4 % (11.5-14.0); White Blood Count 5.9 K/mm3 (4.0-10.5)
--- NOTE | 2021-06-01 09:23 | XRAY ---
Indication: Pneumonia. Comparison: April 15, 2020. Portable chest demonstrates new subtle lingula infiltrate versus atelectasis. Remaining heart and lungs unremarkable again with a few incidental tiny calcified granulomas. Bony thorax intact.
[2021-06-01 09:36] LABS: ALKALINE PHOSPHATASE 65 U/L (38-126); ANION GAP 15.2 MEQ/L (5-15); BLOOD UREA NITROGEN 14 mg/dL (7-17); CHLORIDE 104 mmol/L (98-107); Calcium 8.5 mg/dL (8.4-10.2); Carbon Dioxide 22 mmol/L (22-30); Creatinine 1 0.79 mg/dL (0.52-1.04); EST GLOMERULAR FILTRATION RATE > 60.0 ML/MIN; Glucose 118 mg/dL (74-106); SGOT/AST 26 U/L (14-36); SGPT/ALT 16 U/L (0-35); SODIUM 137 mmol/L (137-145); Total Protein 6.8 g/dL (6.3-8.2)
[2021-06-01 10:59] LABS: Amphetamine,Urine NEGATIVE (NEGATIVE); Barbiturate,Urine NEGATIVE (NEGATIVE); Benzodiazepine,Urine NEGATIVE (NEGATIVE); Cocaine,Urine NEGATIVE (NEGATIVE); Methadone,Urine NEGATIVE (NEGATIVE); Opiate,Urine NEGATIVE (NEGATIVE); PCP,Urine NEGATIVE (NEGATIVE); THC,Urine NEGATIVE (NEGATIVE)
[2021-06-01 11:14] LABS: Appearance CLEAR (CLEAR); Bacteria RARE /HPF (NEGATIVE); Bilirubin NEGATIVE (NEGATIVE); Blood NEGATIVE Ery/ul (0-5); Glucose NEGATIVE (NEGATIVE); Ketones NEGATIVE (NEGATIVE); Leukocyte Esterase NEGATIVE (NEGATIVE); Nitrite NEGATIVE (NEGATIVE); Protein,Urine Dip NEGATIVE (Negative); Specific Gravity 1.005 (1.005-1.025); Urobilinogen NEGATIVE mg/dL (0-1)
[2021-06-01 13:03] VITALS: BP 93/65; PULSE 74
[2021-06-01 13:24] VITALS: O2SAT 99
== END 2021-06-01 13:35 | disposition left against medical advice (07) ==
LOC: ED 08:48
DX: R94.6 Abnormal results of thyroid function studies (principal); G40.919 Epilepsy, unspecified, intractable, without status epilepticus; R41.82 Altered mental status, unspecified
CPT/HCPCS: 36000; 36415; 70450; 71045; 80053; 80307; 81001; 82140; 82947; 83605; 84443; 84484; 85025; 93005; 93041; 94760; 99284

== ENCOUNTER 2021-07-06 07:18 | Day surgery (SDC) | payer MEDICARE ==
[2021-07-06] MEDS ORDERED: Xylocaine 1% Vial 30 ML PF IJ ONE (07:19)
[2021-07-06] MEDS ORDERED: Sodium Chloride 0.9(Preservative Free) 10 ML IJ ONE (07:19)
[2021-07-06] MEDS ORDERED: Depo-Medrol 40 MG/ML IM ONE (07:19)
[2021-07-06] MEDS ORDERED: Lactated Ringers 1,000 ML IV ONE (09:44)
--- NOTE | 2021-07-06 11:38 | XRAY ---
Indication: Lumbar WAYNE. Intraoperative fluoroscopy provided for 25 seconds. 3 digital spot images submitted for interpretation demonstrates midline posterior needle tip projecting posterior to the L4-L5 interspace. Small amount of contrast injected for needle tip placement. Correlate with intraoperative findings/report.
--- NOTE | 2021-07-06 11:42 | XRAY ---
25 seconds fluoroscopy time in surgery for lumbar WAYNE.
== END 2021-07-06 09:37 | disposition home or self-care (01) ==
LOC: SDC-PAIN 07:18
PROVIDERS: ATTEND Psychiatry & Neurology Pain Medicine
DX: M54.16 Radiculopathy, lumbar region (principal); Z79.899 Other long term (current) drug therapy
CPT/HCPCS: 62323; 72100; 77003; 82947; 84703; J1030; J2001

== ENCOUNTER 2021-08-29 01:34 | Emergency (ER) | payer MEDICARE ==
[2021-08-29 01:45] VITALS: O2SAT 98
[2021-08-29] MEDS ORDERED: Ativan 2 MG/1 ML VIAL IV ONE (02:07)
[2021-08-29 02:18] LABS: Absolute Neutrophil Ct (ANC) 3.88 (1.4-6.9); BASOPHIL % 0.5 % (0.0-0.4); Basophil (Absolute #) 0.05 (0-0.4); Eosinophil % 7.2 % (0.00-5.0); Hemoglobin 13.7 gm/dl (12.0-16.0); Lymphocyte (Absolute #) 4.33 (1.0-4.6); Lymphocytes % 44.6 % (24.0-44.0); Mean Cell Volume 89.6 fl (78-100); Mean Corpuscular Hemoglobin 29.2 pg (26-32); Mean Corpuscular Hgb Concent. 32.6 g/dl (32-36); Mean Platelet Volume 10.3 fl (7.5-11.0); Monocyte (Absolute #) 0.74 (0.0-1.3); Monocytes % 7.6 % (0.0-12.0); Neutrophil % 40.1 % (36.0-66.0); Platelet Count 305 K/mm3 (150-450); Red Blood Count 4.69 M/mm3 (4.1-5.4); Red Cell Distribution Width 14.5 % (11.5-14.0); White Blood Count 9.7 K/mm3 (4.0-10.5)
[2021-08-29 02:23] LABS: ALBUMIN 4.4 g/dL (3.5-5.0); ALKALINE PHOSPHATASE 68 U/L (38-126); ANION GAP 13.4 MEQ/L (5-15); BLOOD UREA NITROGEN 23 mg/dL (7-17); CHLORIDE 101 mmol/L (98-107); Calcium 9.1 mg/dL (8.4-10.2); Carbon Dioxide 28 mmol/L (22-30); EST GLOMERULAR FILTRATION RATE > 60.0 ML/MIN; Glucose 70 mg/dL (74-106); Potassium 3.6 mmol/L (3.5-5.1); SGOT/AST 25 U/L (14-36); SGPT/ALT 17 U/L (0-35); SODIUM 139 mmol/L (137-145); Total Protein 7.6 g/dL (6.3-8.2)
[2021-08-29] MEDS ORDERED: Ativan 2 MG/1 ML VIAL ONE (02:47)
[2021-08-29 03:15] LABS: Appearance CLEAR (CLEAR); Bacteria RARE /HPF (NEGATIVE); Bilirubin NEGATIVE (NEGATIVE); Blood NEGATIVE Ery/ul (0-5); Glucose NEGATIVE (NEGATIVE); Ketones NEGATIVE (NEGATIVE); Leukocyte Esterase NEGATIVE (NEGATIVE); Nitrite NEGATIVE (NEGATIVE); Protein,Urine Dip NEGATIVE (Negative); RBC 0-2 /HPF (0-2); Specific Gravity 1.014 (1.005-1.025); Urobilinogen NEGATIVE mg/dL (0-1); WBC 0-2 /HPF (0-5)
[2021-08-29 03:22] LABS: Amphetamine,Urine NEGATIVE (NEGATIVE); Barbiturate,Urine NEGATIVE (NEGATIVE); Benzodiazepine,Urine NEGATIVE (NEGATIVE); Cocaine,Urine NEGATIVE (NEGATIVE); Methadone,Urine NEGATIVE (NEGATIVE); Opiate,Urine NEGATIVE (NEGATIVE); PCP,Urine NEGATIVE (NEGATIVE); THC,Urine NEGATIVE (NEGATIVE)
--- NOTE | 2021-08-29 04:06 | ERPHSYRPT ---
- History of Present Illness Time Seen by Provider: 08/29/21 02:00 Source: patient Exam Limitations: no limitations Patient Subjective Stated Complaint: Patient states " I feel like my head and brain is in a fish bowl." Triage Nursing Assessment: Patient arrived to ED via ambulance. Patient A/O times 4. Patient able to tell RN where she is and her name and date of . Patient able to follow simple commands without difficulty. Patient told financial underwriter she had contacted nurse at her MD office in [place] and they told her to go to ER. Patient told RN she feels like her head is inside a fish bowl. Patient tells RN she has dizziness. Patient did tell RN she was at [facility] this past Sunday and was given oral ATB for left ear infection. Upon visual inspection left ear slightly red in color. Patient denies any drainage. Patient afebrile up on arrival. Patient states she had felt fine until about 2030 last night. Patient stated she was texting her [id number] and that her daughter in-law ended up calling her and telling her she was not texting anything that made since. Bilateral hand communications assistant strong and equal. Bilateral pupils brisk and reactive. NIHSS scale totalled 0. Lungs clear bilateral A/P throughout. Respiratory regular and easy and non-labored. Cap refill < 3 seconds. No S/S of acute respiratory distress noted. + BS times 4 quads. ABD large, obese, and non- distended. Patient denies any ABD pain upon palpitation. Patient denies any pain or burning upon urination. + Radial and pedal pulses noted bilateral. Apical pulse upon auscultation strong and regular. Patient noted with non-pitting edema to bilateral lower extremities. Patient with no seizure like activity upon triage. Patient denies any pain or discomfort. Physician History: Patient is a 50-year-old female who presents with a complaint of confusion. 830 last evening she was texting her relative when she apparently texted nonsensical stuff she had's been sleeping and then awake and was confused she did call her neurologist at . Who asked her to come to the ER for evaluation. 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 Timing/Duration: yesterday Severity: moderate Character of Deficits: none Deficits: no difficulties Baseline/Normal Cognition: alert 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 Current Cognition: alert 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 Baseline Gait: walks w/o assistance Associated Symptoms: confusion Allergies/Adverse Reactions: Penicillins Allergy (Severe, Verified 08/29/21 01:37) Swelling of Tongue and Lips pregabalin [From Lyrica] Allergy (Severe, Verified 08/29/21 01:37) Swelling of Tongue and Lips isosorbide Adverse Reaction (Severe, Verified 08/29/21 01:37) Home Medications: Duloxetine HCl 120 mg PO DAILY 07/17/17 [History] Metoprolol Succinate 50 mg PO DAILY 04/15/20 [History] Ranolazine 500 MG [Ranexa 500 MG] 500 mg PO BID 04/15/20 [History] Levothyroxine Sodium [Synthroid] 150 mcg PO DAILY 12/04/20 [History] SUMAtriptan succinate [Imitrex 50 mg] 100 mg PO DAILY PRN 05/16/21 [History] Cholecalciferol (Vitamin D3) [Vitamin D3] 50 mcg PO DAILY 06/01/21 [History] Gabapentin [Gralise] 1,800 mg PO HS 06/01/21 [History] ARIPiprazole [Aripiprazole] 5 mg PO DAILY 08/29/21 [History] Azithromycin 250 mg PO DAILY 08/29/21 [History] Diazepam [Valium] 2 mg PO TID 08/29/21 [History] Melatonin 5 mg PO HS 08/29/21 [History] Hx Tetanus, Diphtheria Vaccination/Date Given: No Hx Influenza Vaccination/Date Given: No Hx Pneumococcal Vaccination/Date Given: No Immunizations Up to Date: Yes Travel Risk - International Travel Have you traveled outside of the country in past 3 weeks: No - Coronavirus Screening Close contact with a COVID-19 positive Pt in past 14-21 Days: No - Vaccine Status Have you recieved a Covid-19 vaccination: No - Review of Systems Constitutional: No Fever, No Chills Eyes: No Symptoms Ears, Nose, & Throat: No Symptoms Respiratory: No Cough, No Dyspnea Cardiac: No Chest Pain, No Edema, No Syncope Abdominal/Gastrointestinal: No Abdominal Pain, No Nausea, No Vomiting, No Diarrhea Genitourinary Symptoms: No Dysuria Musculoskeletal: No Back Pain, No Neck Pain Skin: No Rash Neurological: Seizure, No Dizziness, No Focal Weakness, No Sensory Changes Psychological: No Symptoms Endocrine: No Symptoms All Other Systems: Reviewed and Negative - Past Medical History Pertinent Past Medical History: Yes Neurological History: Migraines, Seizures ENT History: No Pertinent History Cardiac History: Hypertension Respiratory History: No Pertinent History Endocrine Medical History: Hyperthyroidism Musculoskeletal History: Degenerative Disk Disease, Fibromyalgia GI Medical History: No Pertinent History History: No Pertinent History Psycho-Social History: Anxiety, Depression, Other Female Reproductive Disorders: No Pertinent History Other Medical History: ptsd - Past Surgical History Past Surgical History: Yes Neuro Surgical History: No Pertinent History Cardiac: Cardiac Catheterization Respiratory: No Pertinent History Gastrointestinal: Cholecystectomy Genitourinary: No Pertinent History Musculoskeletal: Orthopedic Surgery Female Surgical History: Section, Tubal Ligation Other Surgical History: knee scopes, thyroidectomy - Social History Smoking Status: Current every day smoker How long have you smoked: 20 years Exposure to second hand smoke: Yes Drug Use: none Patient Lives Alone: Yes - Female History Hx Last Menstrual Period: Tubal Hx Now: No - Nursing Vital Signs Nursing Vital Signs: Initial Vital Signs Temperature 98.1 F 08/29/21 01:43 Pulse Rate 77 08/29/21 01:43 Respiratory Rate 20 08/29/21 01:43 Blood Pressure 125/83 08/29/21 01:43 O2 Sat by Pulse Oximetry 98 08/29/21 01:43 Pain Scale Pain Intensity 0 - [place] Coma Scale Best Eye Response (Hilda): (4) open spontaneously Best Verbal Response (Hilda): (5) oriented Best Motor Response (Hilda): (6) obeys commands Hilda Total: 15 - Physical Exam General Appearance: no apparent distress, alert Eye Exam: bilateral eye: PERRL, EOMI Ears, Nose, Throat Exam: normal ENT inspection, moist mucous membranes Neck Exam: normal inspection, non-tender, supple Respiratory: normal breath sounds, lungs clear, airway intact, No respiratory distress Cardiovascular: regular rate/rhythm, No edema Gastrointestinal: soft, No tenderness, No distention Back Exam: normal inspection Extremity Exam: normal inspection, No pedal edema 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, 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: 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 Coordination/Gait: normal finger to nose, normal gait Skin Exam: normal color, warm, dry, No rash SpO2 Interpretation: normal SpO2: 98 O2 Delivery: Room Air - Course Nursing assessment & vital signs reviewed: Yes EKG Interpreted by Me: RATE ([id number]), Sinus Rhythm, Left Mcneil Deviation, NORMAL INTERVALS, NORMAL QRS, Non-specific ST Changes - CT Exams Head CT Interpretation: Negative, Tele-radiologist Report Ordered Tests: Active Orders 24 hr Category Date Time Status EKG-ER Only STAT Care 08/29/21 02:07 Active IV Insertion STAT Care 08/29/21 02:07 Active HEAD WITHOUT CONTRAST [CT] Stat Exams 08/29/21 02:08 Taken CBC W DIFF Stat Lab 08/29/21 01:45 Completed CMP Stat Lab 08/29/21 01:45 Completed Lactic Acid Stat Lab 08/29/21 02:15 Completed UA W/RFX UR CULTURE Stat Lab 08/29/21 03:03 Completed Urine Triage Profile Stat Lab 08/29/21 03:03 Completed Medication Summary Discontinued Medications Generic Name Dose Route Start Last Admin Trade Name Freq PRN Reason Stop Dose Admin Lorazepam 1 mg 08/29/21 02:07 08/29/21 02:50 Lorazepam 2 Mg/1 Ml 2 Mg Vial IV 08/29/21 02:08 1 mg STAT ONE Administration Lorazepam Confirm 08/29/21 02:47 Lorazepam 2 Mg/1 Ml 2 Mg Vial Administered 08/29/21 02:48 Dose 2 mg .ROUTE .STK-MED ONE Lab/Rad Data: Laboratory Result Diagrams 08/29/21 01:45 08/29/21 01:45 Laboratory Results 08/29/21 08/29/21 08/29/21 Range/Units 03:03 03:03 02:15 WBC (4.0-10.5) K/mm3 RBC (4.1-5.4) M/mm3 Hgb (12.0-16.0) gm/dl Hct (35-47) % MCV (78-100) fl MCH (26-32) pg MCHC (32-36) g/dl RDW (11.5-14.0) % Plt Count (150-450) K/mm3 MPV (7.5-11.0) fl Gran % (36.0-66.0) % Eos # (Auto) (0-0.5) Absolute Lymphs (auto) (1.0-4.6) Absolute Monos (auto) (0.0-1.3) Lymphocytes % (24.0-44.0) % Monocytes % (0.0-12.0) % Eosinophils % (0.00-5.0) % Basophils % (0.0-0.4) % Absolute Granulocytes (1.4-6.9) Basophils # (0-0.4) Sodium (137-145) mmol/L Potassium (3.5-5.1) mmol/L Chloride (98-107) mmol/L Carbon Dioxide (22-30) mmol/L Anion Gap (5-15) MEQ/L BUN (7-17) mg/dL Creatinine (0.52-1.04) mg/dL Estimated GFR ML/MIN Glucose (74-106) mg/dL Lactic Acid 1.0 (0.4-2.0) Calcium (8.4-10.2) mg/dL Total Bilirubin (0.2-1.3) mg/dL AST (14-36) U/L ALT (0-35) U/L Alkaline Phosphatase (38-126) U/L Serum Total Protein (6.3-8.2) g/dL Albumin (3.5-5.0) g/dL Urine Color YELLOW (YELLOW) Urine Appearance CLEAR (CLEAR) Urine pH 5.0 (5-6) Ur Specific [place] 1.014 (1.005-1.025) Urine Protein NEGATIVE (Negative) Urine Ketones NEGATIVE (NEGATIVE) Urine Blood NEGATIVE (0-5) Ernie/ul Urine Nitrite NEGATIVE (NEGATIVE) Urine Bilirubin NEGATIVE (NEGATIVE) Urine Urobilinogen NEGATIVE (0-1) mg/dL Ur Leukocyte Esterase NEGATIVE (NEGATIVE) Urine WBC (Auto) 0-2 (0-5) /HPF Urine RBC (Auto) 0-2 (0-2) /HPF U Epithel Cells (Auto) NONE (FEW) /HPF Urine Bacteria (Auto) RARE (NEGATIVE) /HPF Urine Culture Reflexed NO (NO) Urine Glucose NEGATIVE (NEGATIVE) mg/dL Urine Opiates Level NEGATIVE (NEGATIVE) Ur Methadone NEGATIVE (NEGATIVE) Urine Barbiturates NEGATIVE (NEGATIVE) Ur Phencyclidine (PCP) NEGATIVE (NEGATIVE) Urine Amphetamine NEGATIVE (NEGATIVE) U Benzodiazepine Level NEGATIVE (NEGATIVE) Urine Cocaine NEGATIVE (NEGATIVE) Urine Marijuana (THC) NEGATIVE (NEGATIVE) 08/29/21 08/29/21 Range/Units 01:45 01:45 WBC 9.7 (4.0-10.5) K/mm3 RBC 4.69 (4.1-5.4) M/mm3 Hgb 13.7 (12.0-16.0) gm/dl Hct 42.0 (35-47) % MCV 89.6 (78-100) fl MCH 29.2 (26-32) pg MCHC 32.6 (32-36) g/dl RDW 14.5 H (11.5-14.0) % Plt Count 305 (150-450) K/mm3 MPV 10.3 (7.5-11.0) fl Gran % 40.1 (36.0-66.0) % Eos # (Auto) 0.70 H (0-0.5) Absolute Lymphs (auto) 4.33 (1.0-4.6) Absolute Monos (auto) 0.74 (0.0-1.3) Lymphocytes % 44.6 H (24.0-44.0) % Monocytes % 7.6 (0.0-12.0) % Eosinophils % 7.2 H (0.00-5.0) % Basophils % 0.5 (0.0-0.4) % Absolute Granulocytes 3.88 (1.4-6.9) Basophils # 0.05 (0-0.4) Sodium 139 (137-145) mmol/L Potassium 3.6 (3.5-5.1) mmol/L Chloride 101 (98-107) mmol/L Carbon Dioxide 28 (22-30) mmol/L Anion Gap 13.4 (5-15) MEQ/L BUN 23 H (7-17) mg/dL Creatinine 1.00 (0.52-1.04) mg/dL Estimated GFR > 60.0 ML/MIN Glucose 70 L (74-106) mg/dL Lactic Acid (0.4-2.0) Calcium 9.1 (8.4-10.2) mg/dL Total Bilirubin 0.50 (0.2-1.3) mg/dL AST 25 (14-36) U/L ALT 17 (0-35) U/L Alkaline Phosphatase 68 (38-126) U/L Serum Total Protein 7.6 (6.3-8.2) g/dL Albumin 4.4 (3.5-5.0) g/dL Urine Color (YELLOW) Urine Appearance (CLEAR) Urine pH (5-6) Ur Specific [place] (1.005-1.025) Urine Protein (Negative) Urine Ketones (NEGATIVE) Urine Blood (0-5) Ernie/ul Urine Nitrite (NEGATIVE) Urine Bilirubin (NEGATIVE) Urine Urobilinogen (0-1) mg/dL Ur Leukocyte Esterase (NEGATIVE) Urine WBC (Auto) (0-5) /HPF Urine RBC (Auto) (0-2) /HPF U Epithel Cells (Auto) (FEW) /HPF Urine Bacteria (Auto) (NEGATIVE) /HPF Urine Culture Reflexed (NO) Urine Glucose (NEGATIVE) mg/dL Urine Opiates Level (NEGATIVE) Ur Methadone (NEGATIVE) Urine Barbiturates (NEGATIVE) Ur Phencyclidine (PCP) (NEGATIVE) Urine Amphetamine (NEGATIVE) U Benzodiazepine Level (NEGATIVE) Urine Cocaine (NEGATIVE) Urine Marijuana (THC) (NEGATIVE) - Progress Progress: improved Progress Note: 08/29/21 04:07 After work-up was completed it was discussed with the patient that this probably represented nonepileptic seizure and I encouraged her to use her Ativan least 1 or 2 a day for the next several days. - Departure Departure Disposition: Home Clinical Impression: Psychogenic nonepileptic seizure Condition: Stable Critical Care Time: No Referrals: ABBI NAVARRETE MD [Primary Care Provider] - Instructions: Delirium (Confusion) (DC)
[2021-08-29 04:12] VITALS: BP 120/78; PULSE 70
--- NOTE | 2021-08-29 08:57 | XRAY ---
Indication: Seizure. Confusion. Multiple contiguous axial images obtained through the head without contrast. Comparison: June 01, 2021. Normal appearing brain parenchyma, ventricles, and bony calvarium for patient's age. Visualized paranasal sinuses and mastoid air cells are clear. Impression: Continued normal CT head without contrast exam. Comment: Preliminary interpretation made by [facility]. No critical discrepancy.
== END 2021-08-29 04:20 | disposition home or self-care (01) ==
LOC: ED 01:34
DX: G40.89 Other seizures (principal); Z79.899 Other long term (current) drug therapy
CPT/HCPCS: 36000; 36415; 70450; 80053; 80307; 81001; 83605; 84146; 85025; 93005; 96374; 99284; J2060

== ENCOUNTER 2021-10-25 06:26 | Day surgery (SDC) | payer MEDICARE ==
[2021-10-25] MEDS ORDERED: Lactated Ringers 1,000 ML IV ONE (06:58)
[2021-10-25] MEDS ORDERED: Lactated Ringers 1,000 ML IV SCH (07:00)
[2021-10-25] MEDS ORDERED: SUBLIMAZE 100 MCG/2 ML ONE ×3 (07:47→09:19)
[2021-10-25] MEDS ORDERED: DIPRIVAN 200 MG/20 ML IV ONE (07:47)
[2021-10-25] MEDS ORDERED: Quelicin Fliptop 200 MG/10 ML ONE (07:47)
[2021-10-25] MEDS ORDERED: Versed 2 MG/2 ML Injection ONE (07:47)
[2021-10-25] MEDS ORDERED: VIBRAMYCIN 100 MG*** 100 MG in Dextrose 5%/Water IV Soln. 100ML PLUS BAG 100 ML IV SCH (08:00)
[2021-10-25] MEDS ORDERED: Zemuron 100 MG/10 ML ONE (08:43)
[2021-10-25] MEDS ORDERED: BREVIBLOC 100 MG/10 ML IV ONE (08:53)
[2021-10-25] MEDS ORDERED: BRIDION 200MG/2ML IV ONE (08:54)
[2021-10-25] MEDS ORDERED: Zofran 4 MG/2 ML VIAL ONE (09:19)
[2021-10-25] MEDS ORDERED: TORAdol 30 mg Injection ONE (09:19)
[2021-10-25 10:18] VITALS: O2SAT 97
[2021-10-25 10:46] VITALS: BP 144/86; PULSE 85
--- NOTE | 2021-10-26 08:55 | OP ---
SURGERY DATE/TIME: 10/25/2021 0829 PREOPERATIVE DIAGNOSIS: Menorrhagia. POSTOPERATIVE DIAGNOSIS: Menorrhagia with cervical stenosis. PROCEDURE: D&C with attempted hysteroscopy and attempted ablation. SURGEON: Lauro Gonzalez D.O. ANESTHESIA: General. ESTIMATED BLOOD LOSS: Minimal. COMPLICATIONS: None. INDICATIONS: The risks, benefits, indications and alternatives of the procedure were reviewed with the patient prior to the procedure. The patient understood the risk of infection, bleeding, bowel injury, bladder injury, ureteral injury, uterine perforation, pelvic infection, thromboembolic disorder that may be associated with this surgery however desires to have this surgery as a possible means to alleviate her symptoms. DESCRIPTION OF PROCEDURE AND FINDINGS: At this point the patient is taken to the operating room, given general sedation, placed in dorsal lithotomy position, prepped and draped in the usual sterile fashion. At this point the cervix was then grasped with a single tooth tenaculum where the cervix appeared to be flush against the vaginal cuff. Dilators were used and advanced to through the endocervical canal. However, there was stenosis that was noted. At this point, hysteroscope did not go through the internal cervical os. However, it did go through the endocervical region. From this point, the hysteroscope was removed. The uterus had been sounded to approximately 6 cm and the cervix was dilated to 6 mm. An attempt was made for the NovaSure. However, the NovaSure instrument would not enter the cervical canal. After several attempts of trying to allow the NovaSure into the cervical canal and at this point it was abandoned. From this point a curette was then placed in through the cervical region towards the fundal region where curettage was performed in all quadrants of the region where endometrial curetting's were obtained with much difficulty. At this point there was no bleeding that was noted. The patient was then taken out of the dorsal lithotomy position, was taken out of the anesthesia and was then taken to the recovery room in stable condition. All instruments and laps were accounted for x2.
== END 2021-10-25 10:30 | disposition home or self-care (01) ==
LOC: SDC 06:26
PROVIDERS: ATTEND Obstetrics & Gynecology
DX: N92.0 Excessive and frequent menstruation with regular cycle (principal); N88.2 Stricture and stenosis of cervix uteri
CPT/HCPCS: 84703; J0330; J1885; J2250; J2405; J2704; J3010

== ENCOUNTER 2021-12-24 08:05 | Emergency (ER) | payer MEDICARE ==
--- NOTE | 2021-12-24 08:53 | ERPHSYRPT ---
- History of Present Illness Time Seen by Provider: 12/24/21 08:37 Source: patient Exam Limitations: no limitations Patient Subjective Stated Complaint: pt here for left foot pain after twisiting it last week on ice Triage Nursing Assessment: pt walked in, resp easy, skin w/d/p. no swelling or bruising noted Physician History: 51 years old female presented in the ER after she twisted her left foot last week and having off-and-on pain mild to moderate sharp with ambulation more on the outer side sole of the foot. Did not notice any swelling. No ankle pain. Better with resting. Method of Injury: twisted Occurred: last week Quality: intermittent, sharpness Severity of Pain-Max: moderate Severity of Pain-Current: mild Lower Extremities Pain: foot: left Modifying Factors: Improves With: immobilization. Worsens With: movement Associated Symptoms: No unable to bear weight Allergies/Adverse Reactions: Penicillins Allergy (Severe, Verified 12/24/21 08:19) Swelling of Tongue and Lips pregabalin [From Lyrica] Allergy (Severe, Verified 12/24/21 08:19) Swelling of Tongue and Lips Influenza Virus Vaccines Allergy (Verified 12/24/21 08:19) Swelling of Tongue and Lips isosorbide Adverse Reaction (Severe, Verified 12/24/21 08:19) Home Medications: Duloxetine HCl 120 mg PO DAILY 07/17/17 [History] Metoprolol Succinate 50 mg PO DAILY 04/15/20 [History] Levothyroxine Sodium [Synthroid] 150 mcg PO DAILY 12/04/20 [History] SUMAtriptan succinate [Imitrex 50 mg] 100 mg PO DAILY PRN 05/16/21 [History] Gabapentin [Gralise] 1,800 mg PO HS 06/01/21 [History] Diazepam [Valium] 2 mg PO TID 08/29/21 [History] ARIPiprazole [Abilify Mycite] 5 mg PO HS 10/24/21 [History] Calcium Carbonate [Calcium] 600 mg PO DAILY 10/24/21 [History] Clonidine HCl 0.1 mg [Catapres 0.1 MG] 1 - 2 tab PO HS 10/24/21 [History] Hx Tetanus, Diphtheria Vaccination/Date Given: No Hx Influenza Vaccination/Date Given: No Hx Pneumococcal Vaccination/Date Given: No Immunizations Up to Date: Yes Travel Risk - International Travel Have you traveled outside of the country in past 3 weeks: No - Coronavirus Screening Are you exhibiting any of the following symptoms?: No - Vaccine Status Have you recieved a Covid-19 vaccination: No - Review of Systems Constitutional: No Symptoms Respiratory: No Symptoms Cardiac: No Symptoms Genitourinary Symptoms: No Symptoms Musculoskeletal: Injury Skin: No Symptoms Neurological: No Symptoms Hematologic/Lymphatic: No Symptoms Immunological/Allergic: No Symptoms - Past Medical History Pertinent Past Medical History: Yes Neurological History: Migraines ENT History: No Pertinent History Cardiac History: Hypertension Respiratory History: Asthma Endocrine Medical History: Hyperthyroidism Musculoskeletal History: Degenerative Disk Disease, Fibromyalgia GI Medical History: No Pertinent History History: No Pertinent History Psycho-Social History: Anxiety, Depression, Other Female Reproductive Disorders: No Pertinent History Other Medical History: ptsd. " psyogenic Episodes" - Past Surgical History Past Surgical History: Yes Neuro Surgical History: No Pertinent History Cardiac: Cardiac Catheterization Respiratory: No Pertinent History Gastrointestinal: Cholecystectomy Genitourinary: No Pertinent History Musculoskeletal: Orthopedic Surgery Female Surgical History: Section, Tubal Ligation Other Surgical History: knee scopes, thyroidectomy - Social History Smoking Status: Current every day smoker How long have you smoked: age 15 Exposure to second hand smoke: Yes Drug Use: none Patient Lives Alone: Yes - Female History Hx Last Menstrual Period: 11/26/2021 Hx Now: No - Nursing Vital Signs Nursing Vital Signs: Initial Vital Signs Temperature 97.0 F 12/24/21 08:13 Pulse Rate 88 12/24/21 08:13 Respiratory Rate 16 12/24/21 08:13 Blood Pressure 108/79 12/24/21 08:13 O2 Sat by Pulse Oximetry 97 12/24/21 08:13 Pain Scale Pain Intensity 4 - Physical Exam General Appearance: no apparent distress Neck Exam: normal inspection, full range of motion Cardiovascular/Respiratory Exam: normal breath sounds, regular rate/rhythm Hips Exam: bilateral: non-tender, normal inspection, normal range of motion Legs Exam: bilateral leg: non-tender, normal inspection, normal range of motion Ankle Exam: bilateral ankle: non-tender, normal inspection, normal range of motion, no evidence of injury Foot Exam: right foot: non-tender, left foot: pain (Lateral foot), soft tissue tenderness (Lateral foot), bilateral foot: normal inspection, normal range of motion, no evidence of injury Neuro/Tendon Exam: normal sensation, normal motor functions, normal tendon functions Mental Status Exam: alert, 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, cooperative Skin Exam: normal color SpO2 Interpretation: normal SpO2: 97 O2 Delivery: Room Air Ordered Tests: Active Orders 24 hr Category Date Time Status FOOT (MINIMUM 3 VIEWS) Stat Exams 12/24/21 08:37 Taken - Progress Progress: unchanged Progress Note: 12/24/21 08:50 Offered pain medication which he refused. Does not have any obvious swelling. Minimal tenderness on the base of fifth metatarsal. X-rays reviewed by me did not reveal any obvious fracture. Recommended Дмитрий wrap, Tylenol/NSAIDs as needed and outpatient follow-up. Counseled pt/family regarding: diagnosis, need for follow-up, rad results - Departure Departure Disposition: Home Clinical Impression: Foot sprain Condition: Stable Critical Care Time: No Referrals: ABBI NAVARRETE MD [Primary Care Provider] - Follow Up with PCP/3 days Instructions: Foot Sprain (DC), Foot Fracture (DC) Additional Instructions: Take Tylenol/baclofen ankle as needed for pain. Follow-up with primary care for reevaluation. Avoid exertional activities. Use intermittent ice. Return to ER for increasing pain and swelling. Prescriptions: Diclofenac Sodium 50 mg PO TID PRN 7 Days #20 tab PRN Reason: Pain
[2021-12-24 09:06] VITALS: BP 126/73; PULSE 78; O2SAT 98
--- NOTE | 2021-12-24 18:48 | XRAY ---
Indication: Lateral pain following twisting injury 3 days ago. Comparison: December 13, 2016. 3 nonweightbearing views left foot unchanged again demonstrating mild 1st MTP bunion deformity and tiny heel spurs. No new/acute abnormalities.
== END 2021-12-24 09:07 | disposition home or self-care (01) ==
LOC: ED 08:05
DX: S93.602A Unspecified sprain of left foot, initial encounter (principal); X50.1XXA Overexertion from prolonged static or awkward postures, initial encounter; I10 Essential (primary) hypertension; Z79.899 Other long term (current) drug therapy; Z72.0 Tobacco use
CPT/HCPCS: 73630; 99283

== ENCOUNTER 2022-06-28 15:59 | Day surgery (SDC) | payer MEDICARE ==
[2022-06-28] MEDS ORDERED: Depo-Medrol 40 MG/ML IM ONE (16:00)
[2022-06-28] MEDS ORDERED: XYLOCAINE-MPF 1% 5ML SDV IJ ONE (16:00)
[2022-06-28] MEDS ORDERED: Marcaine Mpf 0.5% Vial 30 Ml IJ ONE (16:00)
--- NOTE | 2022-06-28 21:49 | XRAY ---
Indication: Left greater trochanter bursa injection. Intraoperative fluoroscopy provided for 11 seconds. Single digital spot image submitted for interpretation demonstrates needle tip lateral to left greater trochanter. Small amount of contrast injected for needle tip placement. Correlate with intraoperative findings/report.
--- NOTE | 2022-06-29 09:22 | XRAY ---
11 seconds fluoroscopy time in surgery for injection of the left greater trochanter bursa.
== END 2022-06-28 18:30 | disposition home or self-care (01) ==
LOC: SDC-PAIN 15:59
PROVIDERS: ATTEND Psychiatry & Neurology Pain Medicine
DX: M16.12 Unilateral primary osteoarthritis, left hip (principal); Z79.899 Other long term (current) drug therapy
CPT/HCPCS: 20610; 73501; 77002; 81025; J1030; Q9966

== ENCOUNTER 2022-07-26 14:06 | Day surgery (SDC) | payer MEDICARE ==
[2022-07-26] MEDS ORDERED: BUPIVACAINE 0.5% VIAL IJ ONE (14:07)
[2022-07-26] MEDS ORDERED: Depo-Medrol 40 MG/ML IM ONE (14:07)
[2022-07-26] MEDS ORDERED: Lactated Ringers 1,000 ML IV ONE (14:46)
[2022-07-26] MEDS ORDERED: DIPRIVAN 200 MG/20 ML IV ONE (15:20)
--- NOTE | 2022-07-26 18:28 | XRAY ---
Indication: Right hip injection. Intraoperative fluoroscopy provided for 21 seconds. Single digital spot image obtained prone submitted for interpretation demonstrates needle tip projecting lateral to the right femur neck. Small amount of contrast injected for needle tip placement. Correlate with intraoperative findings/report.
--- NOTE | 2022-07-27 09:53 | XRAY ---
21 seconds of fluoroscopy was used in surgery for a left hip intra-articular injection.
== END 2022-07-26 15:45 | disposition home or self-care (01) ==
LOC: SDC-PAIN 14:06
PROVIDERS: ATTEND Psychiatry & Neurology Pain Medicine
DX: M16.12 Unilateral primary osteoarthritis, left hip (principal); Z79.899 Other long term (current) drug therapy
CPT/HCPCS: 20610; 73501; 77002; 81025; J1030; J2704; Q9966

== ENCOUNTER 2023-04-19 22:07 | Emergency (ER) | payer MEDICARE ==
[2023-04-19 22:31] VITALS: O2SAT 97
[2023-04-19] MEDS ORDERED: TORAdol 30 mg Injection IM ONE (22:41)
[2023-04-19] MEDS ORDERED: TORAdol 30 mg Injection ONE (22:44)
--- NOTE | 2023-04-19 22:56 | ERPHSYRPT ---
- History of Present Illness Time Seen by Provider: 04/19/23 22:08 Source: patient Exam Limitations: no limitations Patient Subjective Stated Complaint: pt states "I have bad teeth, [facility] right lower back took pain. was given clindamycin. around 4pm, today I noticed right lower lip and right chin below lip is numb and have a bad shooting pain that lasts for a couple of seconds" Triage Nursing Assessment: pt ambulated into room 9 independently with slow steady gait after standing on scale for weight acquisition. pt is alert and oriented times three, able to speak in complete sentences, moves all extremities and with resp even and unlabored. pt states she took 3 doses of clindamycin 300mg po tid starting 04/17 after being [facility] a broken tooth with pain. she states that she has been on clindamycin several times prior without complication but that today she started noticing intermittent numbness to right lower lip and right chin just under lip. she also reports that she will have a couple seconds of shooting pain across right lower lip that only lasts approx 2 seconds. she spoke with "a nurse with my insurance" who told her to come to the ED. Physician History: 52 years old female with history of anxiety, depression, hypothyroidism with multiple dental caries with periodontal disease, multiple broken teeth needing eruptions was seen at urgent care couple of days ago with swelling and pain right lower jaw with broken tooth, was given clindamycin which she is on and this evening she started to feel having some shooting pain off and on from lower mid jaw to the chin area with some tingling and numbness sensations in the same area without any weakness. Denies any fever or chills, did notice mild increase in the swelling right lower jaw. Patient has some PTSD and cannot have dental work-up done in the clinic but is in the process of referral to dental work-up under general anesthesia in the hospital in [place]. Denies any visual disturbance, difficulty speech, focal numbness tingling or weakness anywhere else. Allergies/Adverse Reactions: Penicillins Allergy (Severe, Verified 04/19/23 22:12) Swelling of Tongue and Lips pregabalin [From Lyrica] Allergy (Severe, Verified 04/19/23 22:12) Swelling of Tongue and Lips Influenza Virus Vaccines Allergy (Verified 04/19/23 22:12) Swelling of Tongue and Lips isosorbide Adverse Reaction (Severe, Verified 04/19/23 22:12) Home Medications: Duloxetine HCl 120 mg PO DAILY 07/17/17 [History] Metoprolol Succinate 50 mg PO DAILY PRN 04/15/20 [History] Levothyroxine Sodium [Synthroid] 150 mcg PO DAILY 12/04/20 [History] SUMAtriptan succinate [Imitrex 50 mg] 100 mg PO DAILY PRN 05/16/21 [History] Diazepam [Valium] 2 mg PO TID PRN 04/19/23 [History] Hx Tetanus, Diphtheria Vaccination/Date Given: Yes Hx Influenza Vaccination/Date Given: No (allergy) Hx Pneumococcal Vaccination/Date Given: No Immunizations Up to Date: Yes Travel Risk - International Travel Have you traveled outside of the country in past 3 weeks: No - Coronavirus Screening Are you exhibiting any of the following symptoms?: No Close contact with a COVID-19 positive Pt in past 14-21 Days: No - Vaccine Status Have you recieved a Covid-19 vaccination: No (allergy) - Review of Systems Constitutional: No Symptoms Eyes: No Symptoms Ears, Nose, & Throat: Mouth Pain, Loose Teeth Respiratory: No Symptoms Cardiac: No Symptoms Abdominal/Gastrointestinal: No Symptoms Musculoskeletal: No Symptoms Skin: No Symptoms Neurological: No Symptoms Psychological: Anxiety, Depression Endocrine: No Symptoms Hematologic/Lymphatic: No Symptoms - Past Medical History Pertinent Past Medical History: Yes Neurological History: Migraines ENT History: No Pertinent History Cardiac History: Hypertension Respiratory History: Asthma Endocrine Medical History: Hyperthyroidism Musculoskeletal History: Degenerative Disk Disease, Fibromyalgia GI Medical History: No Pertinent History, Gallbladder Disease History: No Pertinent History Psycho-Social History: Anxiety, Depression, Other Female Reproductive Disorders: No Pertinent History Other Medical History: ptsd. 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 - Past Surgical History Past Surgical History: Yes Neuro Surgical History: No Pertinent History Cardiac: Cardiac Catheterization Respiratory: No Pertinent History Gastrointestinal: Cholecystectomy Genitourinary: No Pertinent History Musculoskeletal: Orthopedic Surgery Female Surgical History: Section, Tubal Ligation Other Surgical History: knee scopes, thyroidectomy - Social History Smoking Status: Current every day smoker How long have you smoked: age 15 Exposure to second hand smoke: Yes Drug Use: none Patient Lives Alone: Yes - Nursing Vital Signs Nursing Vital Signs: Initial Vital Signs Temperature 97.7 F 04/19/23 22:15 Pulse Rate 88 04/19/23 22:15 Respiratory Rate 20 04/19/23 22:15 Blood Pressure 159/113 04/19/23 22:15 O2 Sat by Pulse Oximetry 97 04/19/23 22:15 Pain Scale Pain Intensity 0 - Physical Exam General Appearance: no apparent distress, alert Eye Exam: bilateral eye: normal inspection, PERRL, EOMI Ear Exam: bilateral ear: auricle normal, canal normal, TM normal Nasal Exam: normal inspection Throat Exam: normal, pharynx normal, dental tenderness (Multiple broken/rotten teeth on both sides. Broken and rotten molar right lower with some swelling around, tenderness, no fluctuation. Almost 2-1/2 cm area of decreased sensations of fine touch on the right anterior jaw/chin area. No weakness or drooping.), mandibular swelling Neck Exam: normal inspection, non-tender, supple, full range of motion Cardiovascular/Respiratory Exam: normal breath sounds, regular rate/rhythm Neurologic Exam: alert, 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, cooperative, stadium attendant II-XII nml as tested, normal mood/affect, nml cerebellar function, nml station & gait, sensation nml Skin Exam: normal color SpO2 Interpretation: normal SpO2: 97 O2 Delivery: Room Air Ordered Tests: Medication Summary Discontinued Medications Generic Name Dose Route Start Last Admin Trade Name Carol PRN Reason Stop Dose Admin Ketorolac Tromethamine 30 mg 04/19/23 22:41 04/19/23 22:45 Ketorolac Tromethamine 30 Mg/Ml Inj IM 04/19/23 22:42 30 mg STAT ONE Administration Ketorolac Tromethamine Confirm 04/19/23 22:44 Ketorolac Tromethamine 30 Mg/Ml Inj Administered 04/19/23 22:45 Dose 30 mg .ROUTE .STK-MED ONE - Progress Progress: pain not gone completely Progress Note: 04/19/23 23:12 52 years old female with history of anxiety, depression, hypothyroidism with multiple dental caries with periodontal disease, multiple broken teeth needing eruptions was seen at urgent care couple of days ago with swelling and pain right lower jaw with broken tooth, was given clindamycin which she is on and this evening she started to feel having some shooting pain off and on from lower mid jaw to the chin area with some tingling and numbness sensations in the same area without any weakness. Denies any fever or chills, did notice mild increase in the swelling right lower jaw. Patient has some PTSD and cannot have dental work-up done in the clinic but is in the process of referral to dental work-up under general anesthesia in the hospital in [place]. Denies any visual disturbance, difficulty speech, focal numbness tingling or weakness anywhere else. She is given Toradol for symptomatic relief. Patient has been taking clindamycin 300 mg 3 times a day, recommended taking it 4 times a day and also patient was taking 200 mg ibuprofen off-and-on as needed, will send a prescription of 600 mg to take and extra prescription of clindamycin to continue for next 3 days with 300 mg 4 times a day. I believe patient has swelling and causing pressure on the nerve with feeling of tingling sensation and shooting pain. Do not think patient has Aleman's palsy, stroke or any other acute neuro event. Does not seem like patient has full-blown abscess as of right now needing emergent transfer or surgical intervention. Patient has no compromise of airway. She is advised to continue with these medication and follow-up with dentist for reevaluation. Discussed signs symptoms of worsening needing return to ER which she seems understanding. Stable for discharge. Counseled pt/family regarding: diagnosis, need for follow-up Medical Desision Making - Risk of complications The pt has a mod risk of morbidity or mortality based on: Need for prescription drug management - Departure Departure Disposition: Home Clinical Impression: Infection of tooth Condition: Stable Critical Care Time: No Referrals: ABBI NAVARRETE MD [Primary Care Provider] - Follow up with PCP 1 day Instructions: Tooth Abscess (DC), Dental Pain (DC) Additional Instructions: Follow-up with your dentist/primary care for reevaluation. Continue with clindamycin 4 times a day for the next 6 days. Take Tylenol/ibuprofen as needed for pain. Return to ER for any worsening. Prescriptions: Ibuprofen 600 mg PO Q6HPRN PRN 10 Days #20 tablet PRN Reason: Pain clindamycin HCL [Clindamycin HCl] 300 mg PO QID 3 Days #12 cap
[2023-04-19 23:02] VITALS: BP 144/103; PULSE 70
== END 2023-04-19 23:11 | disposition home or self-care (01) ==
LOC: ED 22:07
DX: K04.7 Periapical abscess without sinus (principal); K08.89 Other specified disorders of teeth and supporting structures; R20.2 Paresthesia of skin; I10 Essential (primary) hypertension; Z79.899 Other long term (current) drug therapy; Z72.0 Tobacco use
CPT/HCPCS: 96372; 99283; J1885

== ENCOUNTER 2023-05-25 23:09 | Emergency (ER) | payer MEDICARE ==
[2023-05-25] MEDS ORDERED: XYLOCAINE 1% HCL 20 ML MDV IJ ONE (23:10)
[2023-05-25] MEDS ORDERED: Rocephin 1000 MG INJ IM ONE (23:20)
[2023-05-25 23:27] VITALS: BP 129/108; PULSE 102; O2SAT 96
[2023-05-25] MEDS ORDERED: Rocephin 1000 MG INJ ONE (23:27)
--- NOTE | 2023-05-25 23:31 | ERPHSYRPT ---
- History of Present Illness Time Seen by Provider: 05/25/23 23:27 Source: patient Exam Limitations: no limitations Patient Subjective Stated Complaint: pt states she has had right lower dental pain due to a cracked tooth (that is also black in color) and that she was on d oxycycline for 3wks with last dose 5 days ago. for the last 3 days she reports inability to keep down solid food or medications. able to keep liquids down and denies nausea until she eats something solid then she vomits and is no longer nauseated. denies tooth pain at this time. Triage Nursing Assessment: pt ambulated to room 9 independently with slow steady gait after standing on scales for weight acquisition. pt is alert and oriented times three, able to speak in complete sentences, able to move all extremities, and with resp even and unlabored. right lower tooth furthest back is broken off and black in color. pt states she went to urgent care this am and they told her the vomiting was due to having been on the antibiotic and that if the redness around that broken tooth increased she should come to the ER and she felt it is more red. minimal redness noted surrounding broken, no drainage noted. Physician History: has had right lower dental pain due to a cracked tooth (that is also black in color) and that she was on doxycycline for 3wks with last dose 5 days ago. for the last 3 days she reports inability to keep down solid food or medications. able to keep liquids down and denies nausea until she eats something solid then she vomits and is no longer nauseated. denies tooth pain at this time. Timing/Duration: day(s) (5-6 days) Associated Symptoms: denies symptoms Allergies/Adverse Reactions: oxymorphone Allergy (Severe, Verified 05/25/23 23:15) Nausea and Vomiting Penicillins Allergy (Severe, Verified 05/25/23 23:15) Swelling of Tongue and Lips pregabalin [From Lyrica] Allergy (Severe, Verified 05/25/23 23:15) Swelling of Tongue and Lips gabapentin Allergy (Mild, Verified 05/25/23 23:15) Swelling of Feet Influenza Virus Vaccines Allergy (Verified 05/25/23 23:15) Swelling of Tongue and Lips isosorbide Adverse Reaction (Severe, Verified 05/25/23 23:15) Home Medications: Duloxetine HCl 120 mg PO DAILY 07/17/17 [History] Metoprolol Succinate 50 mg PO DAILY PRN 04/15/20 [History] Levothyroxine Sodium [Synthroid] 175 mcg PO DAILY 12/04/20 [History] SUMAtriptan succinate [Imitrex 50 mg] 100 mg PO DAILY PRN 05/16/21 [History] Diazepam [Valium] 2 mg PO TID PRN 04/19/23 [History] Hx Tetanus, Diphtheria Vaccination/Date Given: Yes Hx Influenza Vaccination/Date Given: No (allergy) Hx Pneumococcal Vaccination/Date Given: No Immunizations Up to Date: Yes Travel Risk - International Travel Have you traveled outside of the country in past 3 weeks: No - Coronavirus Screening Are you exhibiting any of the following symptoms?: No Close contact with a COVID-19 positive Pt in past 14-21 Days: No - Vaccine Status Have you recieved a Covid-19 vaccination: No (allergy) - Review of Systems Constitutional: No Symptoms Eyes: No Symptoms Ears, Nose, & Throat: Loose Teeth Respiratory: No Symptoms Cardiac: No Symptoms Abdominal/Gastrointestinal: No Symptoms Genitourinary Symptoms: No Symptoms Musculoskeletal: No Symptoms Skin: No Symptoms Neurological: No Symptoms - Past Medical History Pertinent Past Medical History: Yes Neurological History: Migraines ENT History: No Pertinent History Cardiac History: Hypertension Respiratory History: Asthma Endocrine Medical History: Hyperthyroidism Musculoskeletal History: Degenerative Disk Disease, Fibromyalgia GI Medical History: Gallbladder Disease History: No Pertinent History Psycho-Social History: Anxiety, Depression, Other Female Reproductive Disorders: No Pertinent History Other Medical History: ptsd. 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 - Past Surgical History Past Surgical History: Yes Neuro Surgical History: No Pertinent History Cardiac: Cardiac Catheterization Respiratory: No Pertinent History Gastrointestinal: Cholecystectomy Genitourinary: No Pertinent History Musculoskeletal: Orthopedic Surgery Female Surgical History: Section, Tubal Ligation Other Surgical History: knee scopes, thyroidectomy - Social History Smoking Status: Current every day smoker How long have you smoked: 15yo Exposure to second hand smoke: No Drug Use: none Patient Lives Alone: Yes - Nursing Vital Signs Nursing Vital Signs: Initial Vital Signs Temperature 97.3 F 05/25/23 23:18 Pulse Rate 102 H 05/25/23 23:18 Respiratory Rate 16 05/25/23 23:18 Blood Pressure 129/108 05/25/23 23:18 O2 Sat by Pulse Oximetry 96 05/25/23 23:18 Pain Scale Pain Intensity 0 - Physical Exam General Appearance: no apparent distress Eye Exam: PERRL/EOMI Ears, Nose, Throat Exam: other (abscess tooth) Neck Exam: normal inspection Respiratory Exam: normal breath sounds Cardiovascular Exam: regular rate/rhythm Gastrointestinal/Abdomen Exam: soft Back Exam: normal inspection Neurologic Exam: alert, 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 Skin Exam: normal color SpO2 Interpretation: normal SpO2: 96 O2 Delivery: Room Air - Course Nursing assessment & vital signs reviewed: Yes Ordered Tests: Medication Summary Discontinued Medications Generic Name Dose Route Start Last Admin Trade Name Carol PRN Reason Stop Dose Admin Ceftriaxone Sodium 1,000 mg 05/25/23 23:20 Ceftriaxone Sodium 1000 Mg Inj Vial IM 05/25/23 23:21 STAT ONE - Progress Progress: improved Counseled pt/family regarding: diagnosis, need for follow-up Medical Desision Making - Risk of complications Low Risk: Low risk of morbidity from additional dx testing or treatment - Departure Departure Disposition: Home Clinical Impression: Infection of tooth Condition: Stable Critical Care Time: No Referrals: ABBI NAVARRETE MD [Primary Care Provider] - Follow up/PCP as directed Instructions: Tooth Decay, Adult (DC), Tooth Abscess (DC), Dental Pain (DC) Additional Instructions: Discharge/Care Plan BRIGITTE EL was seen on 05/25/23 in the Emergency Room. The patient was counseled regarding Diagnosis,Lab results, Imaging studies, need for follow up and when to return to the Emergency Room. Prescriptions given: Discharge Note I have spoken with the patient and/or caregivers. I have explained the patient's condition, diagnosis and treatment plan based on the information available to me at this time. I have answered the patient's and/or caregiver's questions and addressed any concerns. The patient and/or caregivers have as good understanding of the patient's diagnosis, condition and treatment plan as can be expected at this point. The vital signs have been stable. The patient's condition is stable and appropriate for discharge from the emergency department. The patient will pursue further outpatient evaluation with the primary care physician or other designated or consulting physician as outlined in the discharge instructions. The patient and/or caregivers are agreeable to this plan of care and follow-up instructions have been explained in detail. The patient and/or caregivers have received these instruction. The patient/and or caregivers are aware that any significant change in condition or worsening of symptoms should prompt an immediate return to this or the closest emergency department or call 911. BRIGITTE EL was seen on 05/25/23 n the Emergency Room. At that time you were treated for an emergent condition, during your visit Laboratory, Radiology and/or other procedures may have been ordered. It is very important that you follow-up with your Primary Care Physician ABBI NAVARRETE within the next 24- 48 hours to review your Emergency Room visit and the final results of testing that was ordered. Some test results such as Urine Cultures, Blood Cultures, and other cultures if ordered will not be finalized for 24-48 hours. If you do not have a Primary Care Provider please call the medical records department at [phone] ext [phone] to obtain a copy of your results or you may sign into our patient portal to obtain these results by visiting us @ [email or web address] and completing the following steps: 1. Click on the Patient Portal link 2. Click the Patient Self Enrollment Link to complete the enrollment form and entering your 3. Once the enrollment form is completed you will receive an email with a temporary ID and password at the email address you provided. 4. Next choose a user name and password. Your user name must be at least 4 characters long and your password must be at least 4 characters long. 5. Choose a security question from the list and provide your answer to the question. If you already have signed into the Health Portal you may access your Health Care Information 04/06 by the following steps: 1. Login to our website @ [email or web address] 2. Enter your original user name and password. FAQS The [facility] Health Portal is an online tool that contains your Lab Results, Radiology Reports, Visit History, Discharge Instructions and Health Summary Lab and Radiology Results will not be available for 72 hours on the portal. The Portal is a secure site, passwords are encryted and URLs are re-written so they cannot be copied and pasted. You and authorized family members are the only ones who can access your Portal. Also there is a timeout feature that protects your information if you leave the Portal page open. If you have technical difficulty please use the Contact Us link on the page this will allow you to submit any questions you have regarding the Portal or you may contact the Medical Record Department at [phone] ext [phone]. Prescriptions: Doxycycline Hyclate 100 mg [Vibramycin 100 MG] 100 mg PO BID #15 tab
== END 2023-05-25 23:50 | disposition home or self-care (01) ==
LOC: ED 23:09
DX: K04.7 Periapical abscess without sinus (principal); R11.2 Nausea with vomiting, unspecified; I10 Essential (primary) hypertension; Z79.899 Other long term (current) drug therapy; Z72.0 Tobacco use
CPT/HCPCS: 96372; 99282; J0696